=== PATIENT | male | born 1940 | race Caucasian/White ===

== ENCOUNTER → 2019-02-20 | Outpatient (CLI) | payer OTHER ==
[~2019-02-20] MED LIST: ALBU2.5V2 IH; ASPI-1197 PO; DILT120C47 PO; FE F1CAP33 PO; FINA5TAB41 PO; LANS30CA55 PO; LOSA25TA41 PO; MELO-108 PO; METF-444 PO; PRAV40TA3 PO; REGADENOSON 0.4 MG/5 ML PF SYG IVP SCH; TAMS0.4C32 PO
== END | disposition home or self-care (01) ==
LOC: RAH 08:56
PROVIDERS: ATTEND Family Medicine
DX: I25.10 Atherosclerotic heart disease of native coronary artery without angina pectoris (principal)
CPT/HCPCS: 78452; 93017; 96374; A9500 ×2; J2785

== ENCOUNTER → 2019-04-07 | Outpatient (CLI) | payer OTHER ==
[~2019-04-07] MED LIST changes: -REGADENOSON 0.4 MG/5 ML PF SYG IVP SCH
== END | disposition home or self-care (01) ==
LOC: SLP 20:25
PROVIDERS: ATTEND Family Medicine
DX: G47.30 Sleep apnea, unspecified (principal)
CPT/HCPCS: 95811

== ENCOUNTER → 2020-07-05 | Outpatient (CLI) | payer OTHER ==
[~2020-07-05] MED LIST changes: +REGADENOSON 0.4 MG/5 ML PF SYG IVP SCH
== END | disposition home or self-care (01) ==
LOC: SHCH 07:53
PROVIDERS: ATTEND Internal Medicine Cardiovascular Disease
DX: I21.29 ST elevation (STEMI) myocardial infarction involving other sites (principal); I21.19 ST elevation (STEMI) myocardial infarction involving other coronary artery of inferior wall; I25.10 Atherosclerotic heart disease of native coronary artery without angina pectoris
CPT/HCPCS: 78452; 93017; 96374; A9500 ×2; J2785

== ENCOUNTER → 2020-10-03 | Outpatient (CLI) | payer OTHER ==
[~2020-10-03] MED LIST changes: -REGADENOSON 0.4 MG/5 ML PF SYG IVP SCH
== END | disposition home or self-care (01) ==
LOC: RAH 10:59
PROVIDERS: ATTEND Family Medicine
DX: I65.23 Occlusion and stenosis of bilateral carotid arteries (principal)
CPT/HCPCS: 93880

== ENCOUNTER → 2020-10-24 | Outpatient (CLI) | payer OTHER | END | disposition home or self-care (01) | LOC: RAH 10:44 | PROVIDERS: ATTEND Family Medicine | DX: G31.89 Other specified degenerative diseases of nervous system (principal); I67.82 Cerebral ischemia | CPT/HCPCS: 70551 ==

== ENCOUNTER 2021-07-19 11:07 | Emergency (ER) | payer OTHER ==
[~2021-07-19] VITALS: Ht 177.8 cm; Wt 99.8 kg
[2021-07-19 11:08] VITALS: BP 142/59
== END 2021-07-19 11:51 | disposition left against medical advice (07) ==
LOC: EDH 11:07
DX: R06.02 Shortness of breath (principal); Z53.21 Procedure and treatment not carried out due to patient leaving prior to being seen by health care provider
CPT/HCPCS: 93005

== ENCOUNTER 2022-11-03 21:35 | Observation (INO) | payer OTHER ==
[~2022-11-03] VITALS: Ht 177.8 cm; Wt 110.7 kg
[2022-11-03] MEDS ORDERED: IPRATROPIUM/ALBUTEROL SULFATE 3 ML SOLUTION IH ONE ×2 (22:00→22:30)
[2022-11-03 22:15] LABS: APPEARANCE,URINE CLEAR (CLEAR); BILIRUBIN,URINE NEGATIVE (NEGATIVE); COLOR,URINE LIGHT-YELLOW (YELLOW); GLUCOSE, URINE (UA) NEGATIVE (NEGATIVE); KETONES,URINE NEGATIVE (NEGATIVE); LEUKOCYTE ESTERASE ,URINE NEGATIVE Leu/uL (NEGATIVE); NITRATE,URINE NEGATIVE (NEGATIVE); OCCULT BLOOD,URINE NEGATIVE (NEGATIVE); PH,URINE 5.5 (5.0-8.0); PROTEIN,URINE 20 mg/dL (NEGATIVE); UROBILINOGEN,URINE 0.2 mg/dL (0.2-1.0)
[2022-11-03 22:23] LABS: BASOPHILS % (AUTO) 0.9 % (0.0-5.0); EOSINOPHILS % (AUTO) 0.9 % (0.0-8.0); LYMPHOCYTES % (AUTO) 17.6 % (21.0-51.0); MEAN CORPUSCULAR HEMOGLOBIN 22.8 pg (27.0-33.0); MEAN CORPUSCULAR HGB CONC 30.9 g/dL (32.0-36.0); MEAN CORPUSCULAR VOLUME 73.8 fL (79-99); MONOCYTES % (AUTO) 8.8 % (3.0-13.0); NEUTROPHILS % (AUTO) 69.8 % (40.0-77.0); PLATELET COUNT (AUTO) 336 K/uL (130-400); RED BLOOD CELL COUNT(AUTO) 5.83 MIL/uL (4.50-6.20); RED CELL DISTRIBUTION WIDTH 19.3 % (11.0-15.5); WHITE BLOOD COUNT (AUTO) 11.6 K/uL (4.8-10.8)
[2022-11-03 22:26] LABS: INR 0.96 (0.85-1.15); PROTHROMBIN TIME 10.5 SEC (9.6-11.6)
[2022-11-03 22:27] LABS: PARTIAL THROMBOPLASTIN TIME 23.6 SEC (26.3-35.5)
[2022-11-03] MEDS ORDERED: AZITHROMYCIN 250 MG TABLET PO ONE (22:30)
[2022-11-03] MEDS ORDERED: SOLU-MEDROL 125MG VIAL IVP ONE (22:30)
[2022-11-03] MEDS ORDERED: CEFTRIAXONE 1G VIAL IVP ONE (22:30)
[2022-11-03] MEDS ORDERED: MAGNESIUM 2GM PREMIX 50ML 50 ML IV SCH (22:30)
[2022-11-03 22:31] LABS: B-TYPE NATRIURETIC PEPTIDE 28 pg/mL (0-100)
[2022-11-03 22:34] LABS: CREATININE 1.2 mg/dL (0.5-1.5); POTASSIUM 4.3 mmol/L (3.5-5.1)
[2022-11-03 22:38] LABS: ALBUMIN 3.8 g/dL (3.5-5.0); TOTAL PROTEIN, SERUM 7.2 g/dL (6.0-8.3)
[2022-11-04] MEDS ORDERED: 0.9%NACL 1000ML 2,500 ML IV ONE (00:30)
[2022-11-04 01:51] LABS: ABG HCO3 19.9 mmol/L (21.0-28.0); ABG OXYGEN SATURATION 92.1 % (95.0-99.0); ABG PCO2 36 mmHg (35-48)
[2022-11-04] MEDS ORDERED: ONDANSETRON 4MG INJ IVP PRN (02:30)
[2022-11-04] MEDS ORDERED: ACETAMINOPHEN 325 MG TAB PO PRN (02:30)
[2022-11-04] MEDS ORDERED: LACTULOSE 20 GM/30 ML UDCUP PO PRN (02:30)
[2022-11-04] MEDS ORDERED: ACETAMINOPHEN 650 MG SUPPOSITORY RC PRN (02:30)
[2022-11-04] MEDS ORDERED: CLONIDINE HCL 0.1 MG TABLET PO PRN (02:30)
[2022-11-04] MEDS ORDERED: TEMAZEPAM 15 MG CAPSULE PO PRN (02:30)
[2022-11-04] MEDS ORDERED: DOCUSATE SODIUM 100 MG CAP PO PRN (02:30)
[2022-11-04] MEDS ORDERED: LABETALOL 20MG SYG IV PRN (02:30)
[2022-11-04] MEDS ORDERED: HYDRALAZINE 20MG/ML VIAL IV PRN (02:30)
[2022-11-04] MEDS ORDERED: ALBUTEROL 0.083% 2.5 MG/3 ML INH IH PRN (02:30)
[2022-11-04] MEDS ORDERED: MAGNESIUM 2GM PREMIX 50ML 50 ML IV PRN (03:00)
[2022-11-04] MEDS ORDERED: GLUCAGON 1MG KIT 1 MG ML IM PRN (03:00)
[2022-11-04] MEDS ORDERED: DEXTROSE 50%-WATER 50 ML DISP.SYRIN IV PRN (03:00)
[2022-11-04] MEDS ORDERED: POTASSIUM CHLORIDE 10% ELIXIR 20 MEQ/15 ML UDCUP PO PRN (03:00)
[2022-11-04] MEDS ORDERED: KCL 20 MEQ ERTAB PO PRN (03:00)
[2022-11-04] MEDS ORDERED: POTASSIUM CHLORIDE 20MEQ/100ML 100 ML IV PRN (03:00)
[2022-11-04] MEDS ORDERED: LIDOCAINE HCL-MPF 1% 2ML VIAL IV PRN (03:00)
[2022-11-04] MEDS ORDERED: IPRATROPIUM/ALBUTEROL SULFATE 3 ML SOLUTION IH ONE (03:48)
[2022-11-04 04:00] VITALS: BP 134/68
[2022-11-04] MEDS: IPRATROPIUM/ALBUTEROL SULFATE 3 ML SOLUTION IH SCH ×4 (04:00→14:32)
[2022-11-04] MEDS ORDERED: FLUT1BLS3 PO (05:58)
[2022-11-04] MEDS ORDERED: DIAZ2TAB3 PO (05:58)
[2022-11-04] MEDS ORDERED: PEG4000S8 PO (05:58)
[2022-11-04] MEDS ORDERED: OLME-9 PO (05:58)
[2022-11-04] MEDS ORDERED: PREG25CA18 PO (05:58)
[2022-11-04] MEDS ORDERED: OMEP1CAP2 PO (05:58)
[2022-11-04] MEDS ORDERED: IPRATROPIUM/ALBUTEROL SULFATE 3 ML SOLUTION IH SCH (06:00)
[2022-11-04 06:49] LABS: BASOPHILS % (AUTO) 0.3 % (0.0-5.0); HEMATOCRIT 40.8 % (42-54); LYMPHOCYTES % (AUTO) 3.5 % (21.0-51.0); MEAN CORPUSCULAR HEMOGLOBIN 22.8 pg (27.0-33.0); MEAN CORPUSCULAR HGB CONC 29.9 g/dL (32.0-36.0); MEAN CORPUSCULAR VOLUME 76.3 fL (79-99); NEUTROPHILS % (AUTO) 93.4 % (40.0-77.0); PLATELET COUNT (AUTO) 278 K/uL (130-400); RED BLOOD CELL COUNT(AUTO) 5.35 MIL/uL (4.50-6.20); RED CELL DISTRIBUTION WIDTH 18.8 % (11.0-15.5); WHITE BLOOD COUNT (AUTO) 11.8 K/uL (4.8-10.8)
[2022-11-04] MEDS: INSULIN HUMULIN R 100 UNIT/ML 3ML SQ SCH ×4 (06:58→21:02)
[2022-11-04 07:15] LABS: CREATININE 1.4 mg/dL (0.5-1.5); MAGNESIUM 1.6 mg/dL (1.80-2.40); PHOSPHORUS 4.6 mg/dL (2.5-4.9); POTASSIUM 4.5 mmol/L (3.5-5.1)
[2022-11-04 08:00] VITALS: BP 147/69
[2022-11-04] MEDS ORDERED: SOLU-MEDROL 125MG VIAL IVP SCH (08:00)
[2022-11-04] MEDS: ENOXAPARIN SODIUM 40 MG/0.4 ML SYRINGE SQ SCH (09:04)
[2022-11-04] MEDS: ASPIRIN 81MG CHEW TAB PO SCH (09:04)
[2022-11-04] MEDS ORDERED: CEFTRIAXONE 1G VIAL IVP SCH (10:00)
[2022-11-04 10:55] VITALS: BP 131/70
[2022-11-04] MEDS ORDERED: LEVOFLOXACIN 500 MG/D5W 100 ML 100 ML IV SCH (12:30)
[2022-11-04] MEDS ORDERED: GUAIFENESIN-DM 200/20 MG 10 ML PO PRN (13:00)
[2022-11-04 16:00] VITALS: BP 143/73
[2022-11-04] MEDS ORDERED: DIAZEPAM 2 MG TAB PO PRN (16:30)
[2022-11-04] MEDS: ALBUTEROL 0.083% 2.5 MG/3 ML INH IH SCH ×2 (19:01→23:34)
[2022-11-04 19:55] VITALS: BP 162/80
[2022-11-04] MEDS: PREGABALIN 25 MG CAP PO SCH (20:56)
[2022-11-04] MEDS: OLMESARTAN HCTZ PO SCH (21:00)
[2022-11-04] MEDS ORDERED: IOHEXOL 350 MG/ML 100ML INFUS..BTL IV ONE (21:02)
[2022-11-04] MEDS ORDERED: AZITHROMYCIN 500MG+NS 250ML IV SCH (22:00)
[2022-11-04 23:49] VITALS: BP 140/65
[2022-11-04] MEDS: SOLU-MEDROL 40MG VIAL IVP SCH (23:52)
[2022-11-05 04:22] VITALS: BP 140/76
[2022-11-05] MEDS: ALBUTEROL 0.083% 2.5 MG/3 ML INH IH SCH ×2 (06:24→11:12)
[2022-11-05] MEDS: INSULIN HUMULIN R 100 UNIT/ML 3ML SQ SCH ×2 (06:50→11:33)
[2022-11-05] MEDS ORDERED: INSULIN GLARGINE 100 UNITS/ML 10 ML VIAL SQ SCH (07:30)
[2022-11-05 07:35] LABS: HEMATOCRIT 38.4 % (42-54); MEAN CORPUSCULAR HEMOGLOBIN 23.1 pg (27.0-33.0); MEAN CORPUSCULAR HGB CONC 30.5 g/dL (32.0-36.0); MEAN CORPUSCULAR VOLUME 75.7 fL (79-99); RED BLOOD CELL COUNT(AUTO) 5.07 MIL/uL (4.50-6.20); WHITE BLOOD COUNT (AUTO) 16.4 K/uL (4.8-10.8)
[2022-11-05 07:49] LABS: POTASSIUM 4.2 mmol/L (3.5-5.1)
[2022-11-05] MEDS: SOLU-MEDROL 40MG VIAL IVP SCH (08:38)
[2022-11-05] MEDS: ASPIRIN 81MG CHEW TAB PO SCH (08:38)
[2022-11-05] MEDS: PREGABALIN 25 MG CAP PO SCH (08:38)
[2022-11-05] MEDS: ENOXAPARIN SODIUM 40 MG/0.4 ML SYRINGE SQ SCH (08:39)
[2022-11-05 08:40] VITALS: BP 139/75
[2022-11-05] MEDS ORDERED: ZEGERID 20 MG PO SCH (09:00)
[2022-11-05] MEDS ORDERED: FINASTERIDE 5 MG TABLET PO SCH (09:00)
[2022-11-05] MEDS ORDERED: ASPIRIN 81MG CHEW TAB PO SCH (09:00)
[2022-11-05] MEDS: OLMESARTAN HCTZ PO SCH (09:00)
[2022-11-05] MEDS ORDERED: TAMSULOSIN HCL 0.4 MG CAP.ER.24H PO SCH (09:00)
[2022-11-05] MEDS ORDERED: Pravastatin Sodium 40 MG PO SCH (09:00)
[2022-11-05] MEDS ORDERED: DILTIAZEM 120MG SR CAP PO SCH (09:00)
[2022-11-05] MEDS ORDERED: LEVO-70 PO (11:18)
[2022-11-05] MEDS ORDERED: PRED20TA3 PO (11:18)
[2022-11-05] MEDS ORDERED: PRED10TA3 PO (11:18)
[2022-11-05] MEDS ORDERED: ALBU1.252 IH (11:18)
[2022-11-05] MEDS ORDERED: LEVOFLOXACIN 500 MG TABLET ONE (11:58)
[2022-11-05] MEDS ORDERED: LEVOFLOXACIN 500 MG TABLET PO SCH (12:00)
[2022-11-05 12:09] VITALS: BP 145/70
[2022-11-05] MEDS ORDERED: LEVOFLOXACIN 250 MG/D5W 50ML 50 ML IVPB SCH (12:30)
[2022-11-05] MEDS ORDERED: LEVOFLOXACIN 500 MG TABLET PO ONE (14:00)
== END 2022-11-05 13:54 | disposition home or self-care (01) ==
LOC: EDH 21:35 → EDHIP 11-04 01:32 → 2DH 11-04 03:05
PROVIDERS: ADMIT Internal Medicine; ATTEND Internal Medicine
DX: A41.9 Sepsis, unspecified organism (principal); Z20.822 Contact with and (suspected) exposure to COVID-19; J96.01 Acute respiratory failure with hypoxia; J44.1 Chronic obstructive pulmonary disease with (acute) exacerbation; J18.9 Pneumonia, unspecified organism; I10 Essential (primary) hypertension; E11.65 Type 2 diabetes mellitus with hyperglycemia; G47.33 Obstructive sleep apnea (adult) (pediatric); E87.20 Acidosis, unspecified; E78.00 Pure hypercholesterolemia, unspecified; F41.9 Anxiety disorder, unspecified; M54.30 Sciatica, unspecified side; R65.20 Severe sepsis without septic shock; Z87.891 Personal history of nicotine dependence; Z90.49 Acquired absence of other specified parts of digestive tract; Z95.5 Presence of coronary angioplasty implant and graft; Z79.899 Other long term (current) drug therapy; Z98.890 Other specified postprocedural states; Z95.1 Presence of aortocoronary bypass graft; Z79.84 Long term (current) use of oral hypoglycemic drugs; Z79.82 Long term (current) use of aspirin
CPT/HCPCS: 96375; 99285; 84484; 80053; 83880; 85025 ×2; 85610; 85730; 87040 ×2; 87071; 87205; 87804 ×2; 83605 ×2; 81003; 36415 ×3; 87635; 71045; 93005; 94640 ×10; 96376 ×2; 96372 ×2; 96361; 96365; 96366; 96367; 82435; 82947; 83735; 84100; 84132; 84295; 80048 ×2; 82803; 85378; 85018; 87077; 87186; 82948 ×6; 71270; 36600; 94664; 85027; 94760 ×2; C9803; J3475 ×2; J2930 ×3; J0696; G0378 ×33; J1956 ×2; J7030; J2920 ×2; J1650 ×2; J1815 ×5; Q9967

== ENCOUNTER → 2023-03-06 | Outpatient (CLI) | payer OTHER ==
[~2023-03-06] MED LIST changes: +ALBU1.252 IH; +DIAZ2TAB3 PO; -FE F1CAP33 PO; +FLUT1BLS3 PO; -LANS30CA55 PO; +LEVO-70 PO; -LOSA25TA41 PO; -MELO-108 PO; +OLME-9 PO; +OMEP1CAP2 PO; +PEG4000S8 PO; +PRED10TA3 PO; +PRED20TA3 PO; +PREG25CA18 PO
[2023-03-06 12:10] LABS: EOSINOPHILS % (AUTO) 2.9 % (0.0-8.0); HEMATOCRIT 41.1 % (42-54); LYMPHOCYTES % (AUTO) 17.3 % (21.0-51.0); MEAN CORPUSCULAR HEMOGLOBIN 25.6 pg (27.0-33.0); MEAN CORPUSCULAR HGB CONC 31.4 g/dL (32.0-36.0); MEAN CORPUSCULAR VOLUME 81.5 fL (79-99); MONOCYTES % (AUTO) 6.6 % (3.0-13.0); NEUTROPHILS % (AUTO) 71.6 % (40.0-77.0); PLATELET COUNT (AUTO) 262 K/uL (130-400); RED BLOOD CELL COUNT(AUTO) 5.04 MIL/uL (4.50-6.20); RED CELL DISTRIBUTION WIDTH 17.8 % (11.0-15.5); WHITE BLOOD COUNT (AUTO) 7.9 K/uL (4.8-10.8)
[2023-03-06 12:41] LABS: ALBUMIN 3.6 g/dL (3.5-5.0); CREATININE 0.9 mg/dL (0.5-1.5); POTASSIUM 3.7 mmol/L (3.5-5.1); TOTAL PROTEIN, SERUM 7.3 g/dL (6.0-8.3)
== END | disposition home or self-care (01) ==
LOC: LAB 09:59
PROVIDERS: ATTEND Internal Medicine Cardiovascular Disease
DX: I10 Essential (primary) hypertension (principal)
CPT/HCPCS: 36415; 80053; 83735; 85025

== ENCOUNTER → 2024-01-14 | Outpatient (CLI) | payer OTHER ==
[~2024-01-14] MED LIST changes: -PREG25CA18 PO; +PREG25CA19 PO
[2024-01-14 12:40] LABS: ALBUMIN 3.5 g/dL (3.5-5.0); BILIRUBIN,TOTAL 0.5 mg/dL (0.2-1.0); CREATININE 0.8 mg/dL (0.5-1.5); POTASSIUM 4.2 mmol/L (3.5-5.1); TOTAL PROTEIN, SERUM 6.9 g/dL (6.0-8.3)
== END | disposition home or self-care (01) ==
LOC: LAB 08:30
PROVIDERS: ATTEND Nurse Practitioner Acute Care
DX: E78.5 Hyperlipidemia, unspecified (principal)
CPT/HCPCS: 36415; 80053; 80061

== ENCOUNTER 2024-08-02 14:24 | Emergency (ER) | payer OTHER ==
[~2024-08-02] VITALS: Ht 177.8 cm; Wt 104.3 kg
[~2024-08-02 14:24] MED LIST changes: +OLME-30 PO; -OLME-9 PO
[2024-08-02 17:05] VITALS: BP 138/78; PULSE 64; RESP 18; TEMP 98.7; O2SAT 98
== END 2024-08-02 17:58 | disposition home or self-care (01) ==
LOC: EDH 14:24
DX: N23 Unspecified renal colic (principal); N20.0 Calculus of kidney; R31.9 Hematuria, unspecified; E11.9 Type 2 diabetes mellitus without complications; E78.00 Pure hypercholesterolemia, unspecified; I10 Essential (primary) hypertension; J44.9 Chronic obstructive pulmonary disease, unspecified; Z79.52 Long term (current) use of systemic steroids; Z79.82 Long term (current) use of aspirin; Z79.84 Long term (current) use of oral hypoglycemic drugs; Z79.899 Other long term (current) drug therapy; Z88.1 Allergy status to other antibiotic agents; Z90.49 Acquired absence of other specified parts of digestive tract; Z95.5 Presence of coronary angioplasty implant and graft; Z98.890 Other specified postprocedural states
CPT/HCPCS: 99282

== ENCOUNTER → 2024-08-11 | Outpatient (CLI) | payer OTHER | END | disposition home or self-care (01) | LOC: RAH 13:05 | PROVIDERS: ATTEND Family Medicine | DX: N20.0 Calculus of kidney (principal); N21.0 Calculus in bladder; N28.1 Cyst of kidney, acquired; N32.89 Other specified disorders of bladder; R31.9 Hematuria, unspecified; A15.9 Respiratory tuberculosis unspecified; I70.90 Unspecified atherosclerosis; M47.815 Spondylosis without myelopathy or radiculopathy, thoracolumbar region; J84.9 Interstitial pulmonary disease, unspecified; J84.10 Pulmonary fibrosis, unspecified; Z90.49 Acquired absence of other specified parts of digestive tract | CPT/HCPCS: 74176 ==

== ENCOUNTER → 2025-01-01 | Outpatient (CLI) | payer OTHER ==
[~2025-01-01] MED LIST changes: -DIAZ2TAB3 PO; -DILT120C47 PO; -LEVO-70 PO; -METF-444 PO; +METF-526 PO; -OMEP1CAP2 PO; -PEG4000S8 PO; -PRED10TA3 PO; -PRED20TA3 PO
[2025-01-01 15:25] LABS: ALBUMIN 3.4 g/dL (3.5-5.0); BILIRUBIN,TOTAL 0.3 mg/dL (0.2-1.0); CREATININE 0.9 mg/dL (0.5-1.3); POTASSIUM 4.1 mmol/L (3.5-5.1); TOTAL PROTEIN, SERUM 6.6 g/dL (6.0-8.3)
== END | disposition home or self-care (01) ==
LOC: LAB 13:38
PROVIDERS: ATTEND Internal Medicine Cardiovascular Disease
DX: I25.111 Atherosclerotic heart disease of native coronary artery with angina pectoris with documented spasm (principal); R00.2 Palpitations
CPT/HCPCS: 36415; 80053

== ENCOUNTER → 2025-01-06 | Outpatient (CLI) | payer OTHER ==
[~2025-01-06] MED LIST changes: +IOHEXOL-350 50ML VIAL IV ONE; +IOHEXOL-350 75 ML VIAL IV ONE; +metoPROLOL tartRATE 1 MG/ML 5ML VIAL IV ONE
--- NOTE | 2025-01-06 11:09 | HMCIMG ---
CT CARDIAC ANGIO W/CONT. CCTA REASON: Atherosclerotic heart disease of [place] coronary artery without angina pect COMPARISON: None TECHNIQUE: Images are obtained through the heart in the axial plane before and during bolus IV contrast infusion, 100 cc Omnipaque 350. 2-D and 3-D multiplanar reconstruction images were then performed. The injection had to be repeated once due to motion artifact on the first sequence, total contrast volume was 200 cc. FINDINGS: This dictation is for the noncardiac findings only. Cardiac and coronary artery findings are reported separately. Visualized portions of the lungs are clear. There is normal-appearing pulmonary interstitium. There is no hilar or mediastinal lymphadenopathy. Chest wall structures appear unremarkable. IMPRESSION: 1. Unremarkable noncardiac portions of CT cardiac angiography.
--- NOTE | 2025-01-10 14:00 | CARDIOLOGY ---
RAD REPORT: CORNARY CT ANGIO RADIOLOGY REPORT: CORONARY CT ANGIOGRAPHY DATE: Jan 10, 2025 QUALITY: Excellent CLINICAL HISTORY AND INDICATION: [CAD ] TECHNIQUE: After obtaining a preliminary turbinated bone grinder image, contrast imaging performed on an Aquillon [id number] scanner. A dedicated, limited window, coronary imaging protocol was used, with single breath-hold, retrospective ECG gating, and automated arrhythmia rejection. 100 cc of low osmolar contrast agent: Omnipaque 350 was delivered via a 18-gauge IV catheter in the right antecubital fossa, using a power injector and followed by 60 cc of normal saline bolus as a chaser. Collimated images were reformatted at 0.5 mm intervals, and sent to an offline independent workstation for interpretation, using 3D anatomic reconstructions: Curved multiplanar reconstructions, maximum intensity projections, and multiplanar imaging. 10 mg IV metoprolol was administered prior to scanning. 0.8 mg SL nitroglycerin was given. CORONARY ARTERY DESCRIPTIONS: The coronary arteries arise in normal position. Left main coronary artery: Normal caliber vessel that bifurcates into the LAD and LCx. No stenosis. Left anterior descending coronary artery: Normal caliber vessel and gives rise to diagonal and septal branches. No stenosis. Left circumflex coronary artery: Normal caliber, nondominant and gives rise to two OM branches. No stenosis. Right coronary artery: Large, dominant vessel giving rise to the PL and PDA branches. The proximal to mid RCA is calcified with 20-30% stenosis. There is a drug eluting stent in the mid to distal RCA that appears patent. Just proximal to the stent there is mixed plaque with 40-50% stenosis. CAD-RADs: 3/S, moderate stenosis. Thoracic Aorta: Normal diameter. Kim Chance MD Cardiovascular Disease [facility] KIM CHANCE MD Jan 10, 2025 14:00
== END | disposition home or self-care (01) ==
LOC: RAH 08:52
PROVIDERS: ATTEND Internal Medicine Cardiovascular Disease
DX: I25.10 Atherosclerotic heart disease of native coronary artery without angina pectoris (principal)
CPT/HCPCS: 75574; J3490; Q9967 ×2

== ENCOUNTER 2025-03-09 13:55 | Observation (INO) | payer OTHER ==
[~2025-03-09] VITALS: Ht 177.8 cm; Wt 99.8 kg
[~2025-03-09 13:55] MED LIST changes: +ALBU18HF7 IH; -ALBU2.5V2 IH; -ASPI-1197 PO; +ASPI-1443 PO; +HYDR-4068 PO; -IOHEXOL-350 50ML VIAL IV ONE; -IOHEXOL-350 75 ML VIAL IV ONE; +IPRA42SP EN; +METO-391 PO; +MULT-1289 PO; +POTA15TA11 PO; +TIRZ2.5P SQ; +VIT1CAPS47 PO; -metoPROLOL tartRATE 1 MG/ML 5ML VIAL IV ONE
--- NOTE | 2025-03-09 14:09 | EKG ---
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
--- NOTE | 2025-03-09 14:30 | ERN ---
General Chief Complaint: Chest Pain Stated Complaint: CP Time Seen by MD: 13:56 Source: patient History of Present Illness Initial Comments PATIENT IS A 84-YEAR-OLD MALE COMING IN WITH CHEST PRESSURE. PATIENT STATES HE WAS HOSPITALIZED FOR ATRIAL FIBRILLATION SECONDARY TO HYPOCALCEMIA WAS STARTED ON CALCIUM AND THIS MADE HIS ATRIAL FIBRILLATION WORSE. HE WAS HOSPITALIZED IN DISCHARGED AFTER A COUPLE OF DAYS OF BEING INPATIENT. HE STATES THAT SINCE THEN HE HAS BEEN HAVING CHEST PRESSURE CHEST DISCOMFORT. PATIENT DOES HAS A HISTORY OF ATRIAL FIBRILLATION. Allergies: Coded Allergies: metronidazole (Unverified Allergy, Unknown, 07/04/20) Home Meds Active Scripts Albuterol Sulfate (Albuterol Sulfate) 1.25 Mg/3 Ml Vial.neb, 1.25 MG IH Q6HPRN PRN for SHORTNESS OF BREATH for 30 Days, #90 INH Prov:RIN HOANG POLYSOMNOGRAPH TECH 11/05/22 Reported Medications Albuterol Sulfate (Ventolin Hfa) 90 Mcg Hfa.aer.ad, 2 PUFF IH DAILY 03/01/25 Mv-Min/Folic/K1/Lycopen/Lutein (Centrum Silver Men Tablet) 300 Mcg-60 Mcg-600 Mcg-300 Mcg Tablet, 1 EACH PO DAILY, TAB 02/28/25 Vit C/E/Zn/Coppr/Lutein/Zeaxan (Preservision Areds 2 Softgel) 250MG-90MG Capsule, 1 CAP PO BID for 30 Days, #60 CAP 0 Refills 02/28/25 Ipratropium [place] (Ipratropium [place]) 42 Mcg (0.06 %) [place], 2 SPRY EN BID PRN for congestion 02/28/25 Aspirin (Aspirin EC) 81 Mg Tablet.dr, 81 MG PO DAILY, TAB 02/28/25 Potassium Citrate (Potassium Citrate ER) 15 Meq (1620 Mg) Tablet.er, 1 TAB PO BID 02/28/25 Metoprolol Succinate (Metoprolol Succinate) 50 Mg Tab.er.24h, 1 TAB PO DAILY 02/28/25 Hydrocodone/Acetaminophen (Hydrocodon-Acetaminophn 10-325) 10 Mg-325 Mg Tablet, 1 TAB PO Q6HPRN PRN for MODERATE PAIN (4-6) 02/28/25 Tirzepatide (Mounjaro) 2.5 Mg/0.5 Ml Pen.injctr, 2.5 MG SQ QWEEK on saturdays02/28/25 Metformin HCl (Metformin HCl ER) 500 Mg Tab.er.24, 4 TAB PO DAILYDINNER for 30 Days, #30 TAB 0 Refills 11/02/24 Olmesartan/Hydrochlorothiazide (Olmesartan-Hctz 40-12.5 mg Tab) 40 Mg-12.5 Mg Tablet, 1 TAB PO DAILY for 30 Days, #30 TAB 0 Refills 11/02/24 Pregabalin (Pregabalin) 25 Mg Capsule, 1 CAP PO BID 11/04/22 Fluticasone/Umeclidin/Vilanter (Trelegy Ellipta 100-62.5-25) 100-62.5 Blst.w.dev, 1 PUFF PO DAILY 11/04/22 Tamsulosin HCl (Tamsulosin HCl) 0.4 Mg Cap.er.24h, 0.4 MG PO DAILY, CAPSULE.DR 11/22/16 Finasteride (Finasteride) 5 Mg Tablet, 5 MG PO HS, TAB 11/22/16 Pravastatin Sodium (Pravastatin Sodium) 40 Mg Tablet, 40 MG PO DAILY, TAB 11/22/16 Past Medical History Past Medical History: Arrythmia, CAD, COPD, Diabetes-Type II, High Cholesterol, Hypertension, OK Past Surgical History: Appendectomy, Cholecystectomy Surgical History Other: CARDIAC STENT, HERNIA, SINUSIS , ANKLE Family History Family History: HTN Social History Social History: Negative, Lives with family ROS Dictation CONSTITUTIONAL: NO CHILLS, NO FEVER, NO WEAKNESS, NO DIAPHORESIS, NO MALAISE. HEAD/FACE: NO SIGNS OF TRAUMA. EENT: NO EYE PAIN, NO BLURRED VISION, NO TEARING, NO DOUBLE VISION, NO EAR PAIN, NO EAR DISCHARGE, NO NOSE PAIN, NO NASAL CONGESTION, NO THROAT PAIN, NO THROAT SWELLING, NO MOUTH PAIN. RESPIRATORY: NO COUGH, NO ORTHOPNEA, NO SOB, NO STRIDOR, NO WHEEZING. CARDIOVASCULAR: CHEST PAIN, NO EDEMA, PALPITATIONS, NO SYNCOPE. GASTROINTESTINAL/ABDOMINAL: NO ABDOMINAL PAIN, NO CONSTIPATION, NO DIARRHEA, NO NAUSEA, NO VOMITING. GENITOURINARY: NO ABNORMAL DISCHARGE, NO DYSURIA, NO FREQUENT URINATION, NO HEMATURIA. NO COMPLAINTS OF PAIN IN THE GENITALS. MUSCULOSKELETAL: NO BACK PAIN, NO GOUT, NO JOINT PAIN, NO JOINT SWELLING, NO MUSCLE PAIN, NO MUSCLE STIFFNESS, NO NECK PAIN. INTEGUMENTARY: NO CHANGE IN COLOR, NO CHANGE IN HAIR/NAILS, NO DRYNESS, NO LESION, NO LUMPS, NO RASH. NEUROLOGICAL/PSYCH: NO ANXIETY, NOT DEPRESSED, NO EMOTIONAL PROBLEM, NO HEADACHE, NO NUMBNESS, NO PRE-EXISTING DEFICIT, NO HISTORY OF SEIZURES, NO TREMORS, NO WEAKNESS. HEMATOLOGIC/LYMPHATIC: NOT ANEMIC, NO HISTORY OF BLOOD CLOTS, NO APPARENT BLEEDING, NO BRUISING, GLANDS NOT SWOLLEN. ALL SYSTEMS NEGATIVE, EXCEPT NOTED. Physical Exam Physical Exam Dictation VITAL SIGNS: REVIEWED. GENERAL APPEARANCE: ALERT, ORIENTED X3, NO ACUTE DISTRESS, OBESE. HEAD AND FACE: NON-TRAUMATIC. EYES: PERRL, PINK CONJUNCTIVAS, EYELID NO TRAUMA, ANTERIOR CHAMBER CLEAR. EARS: PINNAS INTACT AND NO SIGNS OF TRAUMA OR ERYTHEMA. EAR CANALS CLEAR AND NO DISCHARGE. TMS NO ERYTHEMA. NOSE: NO DISCHARGE, NO BLEEDING. OROPHARYNX: MOUTH NORMAL, TEETH NO CARIES, TONGUE PINK. PHARYNX CLEAR, NO ERYTHEMA. TONSILS NO EXUDATES, NO ABSCESSES NOTED. MUCOUS MEMBRANE MOIST. NECK: SUPPLE, NON-TENDER, NO THYROMEGALY, NO MASSES, NO JVD, NO BRUITS. BREAST: DEFERRED. CHEST: TENDERNESS, NO CREPITUS, NO PARADOXICAL MOVEMENT, NO RETRACTIONS. LUNGS: CLEAR, WELL-VENTILATED, SYMMETRIC, NO RALES, NO WHEEZING, NO RHONCHI, NO STRIDOR, GOOD BREATH SOUNDS BILATERALLY. HEART: REGULAR RATE, REGULAR RHYTHM, NO MURMUR, NO GALLOPS. VASCULAR: NO PERIPHERAL EDEMA. ABDOMEN: SOFT, POSITIVE BOWEL SOUNDS, NONDISTENDED, NO GUARDING, NONTENDER, NO REBOUND, NO MASSES NO HEPATOMEGALY, NO SPLENOMEGALY, NO DICKINSON'S SIGN, NO HERNIAS. RECTAL: DEFERRED. GENITAL: DEFERRED. NEUROLOGICAL: NORMAL SPEECH, GROSS MOTOR FUNCTION INTACT, GROSS SENSORY FUNCTION INTACT. MUSCULOSKELETAL: NECK NONTENDER, FULL RANGE OF MOTION, BACK NONTENDER, FULL RANGE OF MOTION. EXTREMITIES: NONTENDER, FULL RANGE OF MOTION. SKIN: COLOR PINK, DRY, NO TURGOR, NO RASH, NO LACERATIONS, NO ABRASIONS, NO CONTUSIONS. LYMPHATICS: DEFERRED. Results Laboratory and Microbiology Lab and Micro Result Laboratory Tests Test 03/09/25 14:17 03/09/25 15:00 03/09/25 16:45 White Blood Count 9.3 K/uL (4.8-10.8) Red Blood Count 5.06 MIL/uL (4.50-6.20) Hemoglobin 13.6 g/dL (14.0-18.0) L Hematocrit 42.7 % (42-54) Mean Corpuscular Volume 84.4 fL (79-99) Mean Corpuscular Hemoglobin 26.9 pg (27.0-33.0) L Mean Corpuscular Hemoglobin Concent 31.9 g/dL (32.0-36.0) L Red Cell Distribution Width 16.6 % (11.0-15.5) H Platelet Count 303 K/uL (130-400) Mean Platelet Volume 10.7 fL (7.5-10.5) H Immature Granulocyte % (Auto) 1.0 % (0-1) Neutrophils (%) (Auto) 74.0 % (40.0-77.0) Lymphocytes (%) (Auto) 13.5 % (21.0-51.0) L Monocytes (%) (Auto) 6.9 % (3.0-13.0) Eosinophils (%) (Auto) 3.7 % (0.0-8.0) Basophils (%) (Auto) 0.9 % (0.0-5.0) Neutrophils # (Auto) 6.9 K/uL (1.8-7.7) Lymphocytes # (Auto) 1.3 K/uL (1.0-4.8) Monocytes # (Auto) 0.6 K/uL (0.1-1.0) Eosinophils # (Auto) 0.34 K/uL (0.00-0.70) Basophils # (Auto) 0.08 K/uL (0.00-0.20) Absolute Immature Granulocyte (auto 0.09 K/uL (0-1) Nucleated Red Blood Cells 0.0 % (0.0-0.19) Prothrombin Time 11.0 SEC (9.6-11.6) Prothromb Time International Ratio 1.04 (0.85-1.15) Activated Partial Thromboplast Time 27.6 SEC (26.3-35.5) Sodium Level 138 mmol/L (136-145) Potassium Level 4.1 mmol/L (3.5-5.1) Chloride Level 101 mmol/L (101-111) Carbon Dioxide Level 30 mmol/L (21-32) Blood Urea Nitrogen 18 mg/dL (7-18) Creatinine 0.9 mg/dL (0.5-1.3) Glomerular Filtration Rate Calc 84 mL/min (>90) Random Glucose 106 mg/dL (70-105) H Total Calcium 9.1 mg/dL (8.5-10.1) Magnesium Level 1.70 mg/dL (1.80-2.40) L Total Creatine Kinase 32 U/L (21-232) # Troponin I High Sensitivity 11 ng/L (4-75) 13 ng/L (4-75) B-Type Natriuretic Peptide 206 pg/mL (0-100) H Urine Color COLORLESS (YELLOW) Urine Appearance CLEAR (CLEAR) Urine pH 6.5 (5.0-8.0) Urine Specific [place] 1.008 (1.001-1.031) Urine Protein NEGATIVE mg/dL (NEGATIVE) Urine Glucose (UA) NEGATIVE mg/dL (NEGATIVE) Urine Ketones NEGATIVE mg/dL (NEGATIVE) Urine Occult Blood NEGATIVE (NEGATIVE) Urine Nitrate NEGATIVE (NEGATIVE) Urine Bilirubin NEGATIVE mg/dL (NEGATIVE) Urine Urobilinogen 0.2 mg/dL (0.2-1.0) Urine Leukocyte Esterase NEGATIVE Ra/uL EKG/XRAY/US/CT/MRI EKG Comment 03/09/2025 TIME 1:20 P.M. VENTRICULAR RATE [address] WAVE ELEVATION OR [place] [address] IMAGING REPORT Signed PATIENT: ABISAI MCGHEE MR#: [id number] : 1940 SEX: M AGE: 84 LOCATION: [facility] ORDER 06 STATUS: REG REPORT#: [id number] SERVICE 04 REASON: CP ORDERING PHYSICIAN: AI VILLAFUERTE MD PROCEDURE: CXR1VW - CHEST 1VW Exam Type: CHEST 1VW Clinical Information: CP Comparison: None Findings: Bilateral small pleural effusions. The lungs are clear of infiltrates. The heart is enlarged. Bony and soft tissue structures of the chest wall are unremarkable. IMPRESSION: Cardiomegaly. Clear lungs. Bilateral small pleural effusions. DICTATED BY: MATTHEW STARKS MD DATE: 03/09/251444 ELECTRONICALLY SIGNED BY: MATTHEW STARKS MD DATE: 03/09/251448 [facility] MDM: DIFFERENTIAL DIAGNOSIS: ATRIAL FIBRILLATION, SHORTNESS OF BREATH, RATIONALE: TESTS CONSIDERED AND ORDERED SECONDARY TO SHARED DECISION MAKING INCLUDE: PREVIOUS OUTSIDE RECORDS REVIEWED: OLD ER VISITS. RISK OF COMPLICATION AND/OR MORBIDITY OR MORTALITY OF PATIENT MANAGEMENT: NONE MEDICATIONS-PER MEDICATION RECONCILIATION NEED FOR HOSPITALIZATION: PATIENT DOES NOT MEET CRITERIA FOR HOSPITALIZATION. NEED FOR EMERGENCY MAJOR/MINOR SURGERY: NO THERE ARE NO SOCIAL CONCERNS WITH THIS PATIENT. PRESCRIPTION DRUG MANAGEMENT PRESCRIPTIONS WILL INCLUDE SYMPTOMATIC CARE PATIENT'S PRIOR EXTERNAL MEDICAL RECORDS FROM OTHER ER VISITS WERE REVIEWED BY ME INDICATED. PRIOR TESTING AND RESULTS FROM PREVIOUS VISITS WERE REVIEWED. PRIOR TESTS WERE TAKEN INTO ACCOUNT WITH MEDICAL DECISION MAKING AND RESOURCE U TILIZATION, INDEPENDENT HISTORIAN/HISTORIANS WERE USED TO OBTAIN COMPLETE MEDICAL HISTORY. I INDEPENDENTLY INTERPRETED THE TEST THAT WERE PERFORMED, RESULTS WERE REVIEWED BY ME AND CONSIDERED FINDINGS ON RADIOLOGY IF ORDERED. MEDICAL MANAGEMENT AND EXAMINATION INTERPRETATION DISCUSSIONS WERE HAD BY ME WITH OTHER QUALIFIED HEALTHCARE PROFESSIONALS INDICATED FOR THE PATIENT'S CA RE. HE WILL BE ADMITTED UNDER THE CARE OF COUNTS INCLUDE 234 BEDS AT THE [facility] FOR ONGOING MANAGEMENT. ED Course Orders Procedure Category Date Status Time Cbc With Differential LAB 03/09/25 Complete 14:05 Prothrombin Time With LAB 03/09/25 Complete INR 14:05 B-Type Natriuretic LAB 03/09/25 Complete Peptide 14:05 Chest 1vw RAD 03/09/25 Resulted 14:05 12 Lead Ekg Tracing- EKG 03/09/25 Complete Technical 14:05 Magnesium LAB 03/09/25 Complete 14:05 Creatine Kinase, Total LAB 03/09/25 Complete 14:05 Troponin I High LAB 03/09/25 Complete Sensitivity 14:05 Urinalysis Profile LAB 03/09/25 Complete 14:05 Partial LAB 03/09/25 Complete Thromboplastin Time 14:05 Basic Metabolic Panel LAB 03/09/25 Complete 14:05 Troponin I High LAB 03/09/25 Complete Sensitivity 15:20 Magnesium 2gm Premix PHA 03/09/25 In Process 50ml (Magnesium 2gm 17:00 Current Medications Medications (Trade) Dose Ordered Sig/Clive Route PRN Reason Start Time Stop Time Status Last Admin Dose Admin Magnesium Sulfate 50 ml @ 0 mls/hr PROTOCOL IV 4/22/25 17:00 04/08/25 16:59 03/09/25 16:57 Vital Signs Date Time Temp Pulse Resp B/P (MAP) Pulse Ox O2 Delivery O2 Flow Rate FiO2 03/09/25 15:35 98.1 114 24 98 Room Air* 0 21 03/09/25 13:56 98.1 100 18 151/90 96 DX & DISP Disposition: Inpatient Decision to Admit Time: 17:34 Departure Impression: Primary Impression: Irregular heartbeat Additional Impression: History of atrial fibrillation Condition: Stable Referrals: JOÃO ARRIAGA MD (PCP) AI VILLAFUERTE MD Mar 09, 2025 14:30
[2025-03-09 14:31] LABS: BASOPHILS # (AUTO) 0.08 K/uL (0.00-0.20); BASOPHILS % (AUTO) 0.9 % (0.0-5.0); EOSINOPHILS # (AUTO) 0.34 K/uL (0.00-0.70); EOSINOPHILS % (AUTO) 3.7 % (0.0-8.0); HEMATOCRIT 42.7 % (42-54); IMMATURE GRANULOCYTE ABSOLUTE 0.09 K/uL (0-1); LYMPHOCYTES # (AUTO) 1.3 K/uL (1.0-4.8); LYMPHOCYTES % (AUTO) 13.5 % (21.0-51.0); MEAN CORPUSCULAR HEMOGLOBIN 26.9 pg (27.0-33.0); MEAN CORPUSCULAR HGB CONC 31.9 g/dL (32.0-36.0); MEAN CORPUSCULAR VOLUME 84.4 fL (79-99); MONOCYTES # (AUTO) 0.6 K/uL (0.1-1.0); MONOCYTES % (AUTO) 6.9 % (3.0-13.0); NEUTROPHILS # (AUTO) 6.9 K/uL (1.8-7.7); PLATELET COUNT (AUTO) 303 K/uL (130-400); RED BLOOD CELL COUNT(AUTO) 5.06 MIL/uL (4.50-6.20); RED CELL DISTRIBUTION WIDTH 16.6 % (11.0-15.5); WHITE BLOOD COUNT (AUTO) 9.3 K/uL (4.8-10.8)
[2025-03-09 14:41] LABS: CREATININE 0.9 mg/dL (0.5-1.3); INR 1.04 (0.85-1.15); POTASSIUM 4.1 mmol/L (3.5-5.1)
[2025-03-09 14:43] LABS: PARTIAL THROMBOPLASTIN TIME 27.6 SEC (26.3-35.5)
[2025-03-09 14:45] LABS: MAGNESIUM 1.7 mg/dL (1.80-2.40)
--- NOTE | 2025-03-09 14:49 | HMCIMG ---
Exam Type: CHEST 1VW Clinical Information: CP Comparison: None Findings: Bilateral small pleural effusions. The lungs are clear of infiltrates. The heart is enlarged. Bony and soft tissue structures of the chest wall are unremarkable. IMPRESSION: Cardiomegaly. Clear lungs. Bilateral small pleural effusions.
[2025-03-09 14:55] LABS: B-TYPE NATRIURETIC PEPTIDE 206 pg/mL (0-100)
--- NOTE | 2025-03-09 15:00 | NUR ---
ASSUMED PATIENTS CARE. NO SIGNS OF RESPIRATORY DISTRESS. ALERT AND ORIENTED. ABLE TO VOICE NEEDS AND ANSWER QUESTIONS. VITAL SIGNS: BLOOD PRESSURE: 135/87 MMHG PULSE 114 P/MIN O2 SATURATION 98% RESPIRATION 24
--- NOTE | 2025-03-09 15:07 | NUR ---
PLACED 20G ON RIGHT ANTECUBITAL. FLUSED AND SALINE LOCK. OBTAINED BLOOD SAMPLES.
--- NOTE | 2025-03-09 16:46 | NUR ---
OBTAINED URINE SAMPLE, SENT IT TO LAB.
[2025-03-09] MEDS: MAGNESIUM 2GM PREMIX 50ML 50 ML IV SCH (16:57)
[2025-03-09 16:58] LABS: ADD UA MICROSCOPIC NO; APPEARANCE,URINE CLEAR (CLEAR); BILIRUBIN,URINE NEGATIVE (NEGATIVE); COLOR,URINE COLORLESS (YELLOW); GLUCOSE, URINE (UA) NEGATIVE (NEGATIVE); KETONES,URINE NEGATIVE (NEGATIVE); LEUKOCYTE ESTERASE ,URINE NEGATIVE Leu/uL (NEGATIVE); NITRATE,URINE NEGATIVE (NEGATIVE); OCCULT BLOOD,URINE NEGATIVE (NEGATIVE); PH,URINE 6.5 (5.0-8.0); PROTEIN,URINE NEGATIVE (NEGATIVE); UROBILINOGEN,URINE 0.2 mg/dL (0.2-1.0)
--- NOTE | 2025-03-09 19:52 | HP ---
[facility] HISTORY & PHYSICAL Date Patient Seen: Mar 09, 2025 Time of Visit: 19:43 Supervising Physician: Dr El Jo Primary Care Physician: Dr Page Outpatient Specialists: Dr Loera Inpatient Consults: [ ] PROBLEM LIST: Acute hypoxic respiratory failure, POA COPD, POA Chest pain, POA Atrial fibrillation, POA Hypertension, POA Hyperlipidemia, POA DM type 2, POA Hypomagnesemia, POA History of CAD s/p cardiac stent History of kidney stones status post cystoscopy PLAN: Admit to medical-surgical floor with telemetry VS per unit protocol Continue cardiac monitoring Keep potassium level above four, magnesium level above two Continue O2 therapy DuoNeb q.6 as needed for shortness of breaths Keep systolic blood pressure less than 160 P.r.n. hydralazine and labetalol Keep serum glucose less than 150 ISS and fingerstick per unit protocol Cardiology consult in a.m. Stat EKG and troponin level of with chest pain Up ad karen Heart healthy diet Bilateral SCDs CBC, CMP, magnesium level daily HPI: 84-year-old male with past medical history of SD, CAD as s/p cardiac stent, kidney stones, hypertension, DM type 2, COPD, hyperlipidemia, AFib who presented to ED with complaint of chest pain and worsening shortness of breath and found to have AFib with RVR and hypomagnesemia. Apparently patient was recently discharged from this hospital after undergoing treatment for renal stone and since then he has been having issues with on and off chest pain and irregular heartbeat. Apparently patient says that he has a regular heart rate for the past 20 years and he sees Dr. Loera for management. Patient was initially placed on metoprolol but couple of weeks ago his PCP decided to increase the dose. His symptoms got worse today prompting ER visit. In ER patient was found to have heart rate more than 160s and on AFib RVR patient was also found to be mildly hypoxic improved with O2 therapy. Initial CBC in ED did not reveal any acute infection anemia, his chemistry is unrevealing for any kidney dysfunction however his magnesium level was at 1.7. Chest x-ray was also done and showed no acute infiltrates. At present patient is currently hemodynamically stable, nasal cannula with appropriate oxygen saturation. Denies any headache, chest pain, shortness of breath, abdominal pain, fever, cough, or flu-like symptoms. Patient is an ex-smoker, drinks alcohol occasionally, and denies any illicit drug use. Patient is also vaccinated against COVID virus and his flu shot is up-to-date. PAST MEDICAL HX: see above PAST SURGICAL HX: Noncontributory SOCIAL HISTORY: See HPI Coded Allergies: metronidazole (Unverified Allergy, Unknown, 07/04/20) REVIEW OF SYSTEMS: 12 point ROS reviewed with patient. Pertinent positives mentioned above. Otherwise negative. PHYSICAL EXAM: GENERAL: alert, weak, awake oriented x 3 HEENT: EOMI, Sclera non icteric, moist mucosa NECK: Supple, no JVD, trachea midline LUNGS: Clear breath sounds bilaterally. No wheezes HEART: Regular rate and rhythm. Normal S1 and S2, without murmurs ABD: Abdomen soft, nontender. Bowel sounds present EXT: No clubbing cyanosis or edema NEURO: Alert and oriented to person, follows commands Vital Signs (last 8hr) Date Time Temp Pulse Resp B/P (MAP) Pulse Ox O2 Delivery O2 Flow Rate FiO2 03/09/25 15:35 98.1 114 24 98 Room Air* 0 21 03/09/25 13:56 98.1 100 18 151/90 96 LABS: Hematology Labs: Test 03/09/25 14:17 Range/Units White Blood Count 9.3 4.8-10.8 K/uL Red Blood Count 5.06 4.50-6.20 MIL/uL Hemoglobin 13.6 L 14.0-18.0 g/dL Hematocrit 42.7 42-54 % Mean Corpuscular Volume 84.4 79-99 fL Mean Corpuscular Hemoglobin 26.9 L 27.0-33.0 pg Mean Corpuscular Hemoglobin Concent 31.9 L 32.0-36.0 g/dL Red Cell Distribution Width 16.6 H 11.0-15.5 % Platelet Count 303 130-400 K/uL Mean Platelet Volume 10.7 H 7.5-10.5 fL Immature Granulocyte % (Auto) 1.0 0-1 % Neutrophils (%) (Auto) 74.0 40.0-77.0 % Lymphocytes (%) (Auto) 13.5 L 21.0-51.0 % Monocytes (%) (Auto) 6.9 3.0-13.0 % Eosinophils (%) (Auto) 3.7 0.0-8.0 % Basophils (%) (Auto) 0.9 0.0-5.0 % Neutrophils # (Auto) 6.9 1.8-7.7 K/uL Lymphocytes # (Auto) 1.3 1.0-4.8 K/uL Monocytes # (Auto) 0.6 0.1-1.0 K/uL Eosinophils # (Auto) 0.34 0.00-0.70 K/uL Basophils # (Auto) 0.08 0.00-0.20 K/uL Absolute Immature Granulocyte (auto 0.09 0-1 K/uL Nucleated Red Blood Cells 0.0 0.0-0.19 % Chemistry Labs: Test 03/09/25 15:00 03/09/25 14:17 Range/Units Troponin I High Sensitivity 13 4-75 ng/L Sodium Level 138 136-145 mmol/L Potassium Level 4.1 3.5-5.1 mmol/L Chloride Level 101 101-111 mmol/L Carbon Dioxide Level 30 21-32 mmol/L Blood Urea Nitrogen 18 7-18 mg/dL Creatinine 0.9 0.5-1.3 mg/dL Glomerular Filtration Rate Calc 84 >90 mL/min Random Glucose 106 H 70-105 mg/dL Total Calcium 9.1 8.5-10.1 mg/dL Magnesium Level 1.70 L 1.80-2.40 mg/dL Total Creatine Kinase 32 # 21-232 U/L B-Type Natriuretic Peptide 206 H 0-100 pg/mL Coagulation Labs: Test 03/09/25 14:17 Range/Units Prothrombin Time 11.0 9.6-11.6 SEC Prothromb Time International Ratio 1.04 0.85-1.15 Activated Partial Thromboplast Time 27.6 26.3-35.5 SEC DIAGNOSTICS / RADIOLOGY RESULTS: Exam Type: CHEST 1VW Clinical Information: CP Comparison: None Findings: Bilateral small pleural effusions. The lungs are clear of infiltrates. The heart is enlarged. Bony and soft tissue structures of the chest wall are unremarkable. IMPRESSION: Cardiomegaly. Clear lungs. Bilateral small pleural effusions. PLAN NEURO: Minimize central acting medications as possible. Maintain fall precautions, adequate lighting during the day PULMONARY: Supplemental 02 as needed. Maintain aspiration precautions at all times CARDIOVASCULAR: Follow hemodynamics. Vital signs per facility protocol GI & NUTRITION: Continue with nutritional support. Continue stool softeners and laxatives as needed. KIDNEYS & ELECTROLYTES: Strict monitoring of intake, output and overall fluid balance. Avoid nephrotoxic medications to the extent possible. Medications to be dosed according to renal function. Monitor electrolytes and replace as needed ENDOCRINE: Maintain blood glucose between 100-180 at all times. Hypoglycemia protocol in place INFECTIOUS DISEASE: Trend temperature, WBC and procalcitonin level Follow cultures, deescalate antibiotics as soon as possible. Panculture if new onset fever ONCOLOGY/HEMATOLOGY/COAGULATION: Monitor for s/s of bleeding Monitor hemoglobin, coagulation studies as needed SKIN: Pressure ulcer prevention per facility protocol Specialty mattress ORTHO/REHAB: Continue PT/OT Prophylaxis: Continue GI and DVT prophylaxis Code Status: Full Resuscitation Disposition: TBD Other: Total patient care time exceeds 35 minutes excluding all procedures. Supervising physician: MARTA Fitzgerald APRN Mar 09, 2025 19:52
[2025-03-09] MEDS ORDERED: LAbetaLOL 20MG SYG IV PRN (20:00)
[2025-03-09] MEDS ORDERED: hydrALAZine 20MG/ML VIAL IV PRN (20:00)
[2025-03-09] MEDS ORDERED: acetaMINOPHEN 325 MG TAB PO PRN (20:00)
[2025-03-09] MEDS ORDERED: HYDROcodone/APAP 5/325 1 TAB TABLET PO PRN (20:00)
[2025-03-09] MEDS ORDERED: ondanSETRON 4MG INJ IVP PRN (20:00)
[2025-03-09] MEDS ORDERED: acetaMINOPHEN 650 MG SUPPOSITORY RC PRN (20:00)
[2025-03-09] MEDS ORDERED: OLME40TA18 PO (20:58)
[2025-03-09] MEDS ORDERED: METF-446 PO (20:58)
[2025-03-09] MEDS: INSULIN humuLIN R 100 UNIT/ML 3ML SQ SCH (21:00)
[2025-03-09] MEDS: FAMOTIDINE 20MG TAB PO SCH (22:28)
[2025-03-09 23:32] VITALS: PULSE 61; RESP 20; O2SAT 97
[2025-03-09] MEDS: IpraTROPium 0.5 MG/2.5 ML INH IH SCH (23:32)
[2025-03-10 06:30] VITALS: RESP 20; O2SAT 97
[2025-03-10 06:32] VITALS: PULSE 88; RESP 20
[2025-03-10 08:15] LABS: BASOPHILS % (AUTO) 1.1 % (0.0-5.0); EOSINOPHILS # (AUTO) 0.46 K/uL (0.00-0.70); EOSINOPHILS % (AUTO) 5.2 % (0.0-8.0); HEMATOCRIT 40.4 % (42-54); IMMATURE GRANULOCYTE ABSOLUTE 0.13 K/uL (0-1); LYMPHOCYTES # (AUTO) 1.5 K/uL (1.0-4.8); LYMPHOCYTES % (AUTO) 16.6 % (21.0-51.0); MEAN CORPUSCULAR HEMOGLOBIN 26.9 pg (27.0-33.0); MEAN CORPUSCULAR HGB CONC 31.9 g/dL (32.0-36.0); MEAN CORPUSCULAR VOLUME 84.2 fL (79-99); MONOCYTES # (AUTO) 0.8 K/uL (0.1-1.0); MONOCYTES % (AUTO) 8.6 % (3.0-13.0); NEUTROPHILS # (AUTO) 5.9 K/uL (1.8-7.7); PLATELET COUNT (AUTO) 270 K/uL (130-400); RED CELL DISTRIBUTION WIDTH 16.9 % (11.0-15.5); WHITE BLOOD COUNT (AUTO) 8.8 K/uL (4.8-10.8)
[2025-03-10 08:31] LABS: CREATININE 0.9 mg/dL (0.5-1.3); PHOSPHORUS 3.4 mg/dL (2.5-4.9); POTASSIUM 3.8 mmol/L (3.5-5.1)
[2025-03-10] MEDS: tamSULOsin HCL 0.4 MG CAP.ER.24H PO SCH (09:10)
[2025-03-10] MEDS: ASPIRIN 81 MG EC TAB PO SCH (09:10)
[2025-03-10] MEDS: ASCORBIC ACID 500 MG TAB PO SCH (09:11)
[2025-03-10] MEDS: pregABALin 25 MG CAP PO SCH (09:11)
[2025-03-10] MEDS: LoSARTan 100 MG TABLET PO SCH (09:11)
[2025-03-10] MEDS: metOPROLol sucCINATE 50 MG TAB.SR.24H PO SCH (09:12)
[2025-03-10] MEDS: ENOXAPARIN SODIUM 40 MG/0.4 ML SYRINGE SQ SCH (09:14)
--- NOTE | 2025-03-10 10:29 | NUR ---
HOME MEDS CONTINUED BY SAM ESTRADA NP
--- NOTE | 2025-03-10 10:55 | NUR ---
DCP: HOME Pt was recently discharged on 03/02 for "same issues" reports pt's Raina [phone]. Per , "he has passed 47 stones with the 1640mg of Potassium Citrate he was prescribed by Dr Islas, but this has cause issues with chest pain and irregular heart beat, so we had to come back in". Per , nothing has changed since last admission, she assists pt when needed, but he is able to do self care, and ADLS, pt uses a cane as needed. no HH or HD services. PCP is Rao Page and uses [facility] [address] for rx. Per , pt to [place]. Addendum: 03/10/25 at 1103 by ANTONIO ARAGON SS Amended: Links added.
[2025-03-10 11:26] VITALS: PULSE 66; RESP 20
[2025-03-10 12:00] VITALS: BP 157/82; PULSE 64; RESP 22; TEMP 97.8; O2SAT 97
[2025-03-10] MEDS ORDERED: MAGN100T6 PO (14:29)
[2025-03-10] MEDS ORDERED: finaSTERide 5 MG TABLET PO SCH (21:00)
[2025-03-10] MEDS ORDERED: atorVAStatin 10 MG TABLET PO SCH (21:00)
--- NOTE | 2025-03-11 00:56 | DS ---
[facility] DISCHARGE SUMMARY Date Patient Seen: Mar 11, 2025 Time of Visit: 00:46 Supervising Physician: Sarah Guthrie MD Primary Care Physician: Dr Page Outpatient Specialists: Dr Loera Inpatient Consults: [ ] PROBLEM LIST: Acute hypoxic respiratory failure, POA COPD, POA Chest pain, POA Paroxymal Atrial fibrillation, POA CHADS-VASc score of 4, HAS Bled score 5 (Pt refusing AC) Hypertension, POA Hyperlipidemia, POA DM type 2, POA Hypomagnesemia, POA History of CAD s/p cardiac stent History of kidney stones status post cystoscopy prior hx of hemorrhagic GI bleed from diverticula HOSPITAL COURSE: HPI 84-year-old male with past medical history of IA, CAD as s/p cardiac stent, kidney stones, hypertension, DM type 2, COPD, hyperlipidemia, AFib who presented to ED with complaint of chest pain and worsening shortness of breath and found to have AFib with RVR and hypomagnesemia. Apparently patient was recently discharged from this hospital after undergoing treatment for renal stone and since then he has been having issues with on and off chest pain and irregular heartbeat. Apparently patient says that he has a regular heart rate for the past 20 years [address] he sees Dr. Loera for management. Patient was initially placed on metoprolol but couple of weeks ago his PCP decided to increase the dose. His symptoms got worse today prompting ER visit. In ER patient was found to have heart rate more than 160s and on AFib RVR patient was also found to be mildly hypoxic improved with O2 therapy. Initial CBC in ED did not reveal any acute infection anemia, his chemistry is unrevealing for any kidney dysfunction however his magnesium level was at 1.7. Chest x-ray was also done and showed no acute infiltrates. At present patient is currently hemodynamically stable, nasal cannula with appropriate oxygen saturation. Denies any headache, chest pain, shortness of breath, abdominal pain, fever, cough, or flu-like symptoms. Patient is an ex-smoker, drinks alcohol occasionally, and denies any illicit drug use. Patient is also vaccinated against COVID virus and his flu shot is up-to-date. The patient was seen and examined in room 14 in ED awaiting for a bed. Currentlydy converted to sinus rhythm in the 70s on bedside monitor. He is hemodynamically stable blood pressure 137/78 heart rate in the 70s saturating 96% on room air and afebrile. Home medications has been resumed and he as tolerated well. Magnesium was corrected and this morning magnesium is 2.0. Chemistry unremarkable. CBC similar to yesterday with a H&H of 12.9/40.4 plat elet count 270 K neutrophils are normal. Chest x-ray with cardiomegaly but clear lungs bilateral small pleural effusions. Patient reports he has an appointment with glassware maker Dr. Loera on 03/17/25. I have discussed patient's risk for stroke given his arrhythmias with a high CHADS-VASc score of 4 requiring anticoagulation and patient reports previous hemorrhagic GI bleed therefore he also has a high HAS-BLED score of 5 High risk for major bleeding and he has refused anticoagulation. Has opted out of AC and verbalized undertsanding of high risk for stroke educated patient on signs and symptoms of the stroke and importance to call an ambulance 86 beats any of those patient and verbalized understanding. CHRONIC PROBLEMS: continue previous management per PCP unless otherwise indicated THERAPIST OCCUPATIONAL FINDINGS/RECOMMENDATIONS: Patient to follow up with glassware maker as he has a an appointment for 03/17/25. Follow up with primary care doctor in 1-3 days. PROCEDURES: as mentioned above Pt hemodynamically stable and afebrile at time of discharge. PCP notified of patients admission, hospital course and discharge. New Medications: Magnesium Citrate (Magnesium Citrate) 100 Mg Tablet 1 TAB PO HS for 30 Days, #30 TAB 0 Refills Continued Medications: Albuterol Sulfate (Ventolin Hfa) 90 Mcg Hfa.aer.ad 2 PUFF IH DAILY Aspirin (Aspirin EC) 81 Mg Tablet. 81 MG PO DAILY, TAB Finasteride (Finasteride) 5 Mg Tablet 5 MG PO HS, TAB Ipratropium [place] (Ipratropium [place]) 42 Mcg (0.06 %) [place] 2 SPRY EN BID PRN for congestion Metformin HCl (Metformin HCl) 1,000 Mg Tablet 1 TAB PO HS for 30 Days, #60 TAB 0 Refills Metoprolol Succinate (Metoprolol Succinate) 50 Mg Tab.er.24h 1 TAB PO BID Mv-Min/Folic/K1/Lycopen/Lutein (Centrum Silver Men Tablet) 300 Mcg-60 Mcg-600 Mcg-300 Mcg Tablet 1 EACH PO DAILY, TAB Olmesartan Medoxomil (Olmesartan Medoxomil) 40 Mg Tablet 0.5 TAB PO DAILY for 30 Days, #30 TAB 0 Refills Pravastatin Sodium (Pravastatin Sodium) 40 Mg Tablet 40 MG PO DAILY, TAB Pregabalin (Pregabalin) 25 Mg Capsule 1 CAP PO BID Tamsulosin HCl (Tamsulosin HCl) 0.4 Mg Cap.er.24h 0.4 MG PO DAILY, CAPSULE. Tirzepatide (Mounjaro) 2.5 Mg/0.5 Ml Pen.injctr 2.5 MG SQ QWEEK SUNDAYS Vit C/E/Zn/Coppr/Lutein/Zeaxan (Preservision Areds 2 Softgel) 250MG-90MG Capsule 1 CAP PO BID for 30 Days, #60 CAP 0 Refills Discontinued Medications: Albuterol Sulfate (Albuterol Sulfate) 1.25 Mg/3 Ml Vial.neb 1.25 MG IH Q6HPRN PRN for SHORTNESS OF BREATH for 30 Days, #90 INH PHYSICAL EXAM: GENERAL: alert, weak, awake oriented x 3 HEENT: EOMI, Sclera non icteric, moist mucosa NECK: Supple, no JVD, trachea midline LUNGS: Clear breath sounds bilaterally. No wheezes HEART: Regular rate and rhythm. Normal S1 and S2, without murmurs ABD: Abdomen soft, nontender. Bowel sounds present EXT: No clubbing cyanosis or edema NEURO: Alert and oriented to person, follows commands FOLLOW-UP: Follow-up with PCP in 2-3 days Follow up with Dr. Loera on 03/17/25 RECOMMENDATIONS: See Discharge Instructions This case was seen and discussed with my supervising physician. More than 30 minutes spent on discharge process, including evaluation of the patient, discussion with nursing staff, medication reconciliation and follow-up appointments SAM ESTRADA Mar 11, 2025 00:56
== END 2025-03-10 15:10 | disposition home or self-care (01) ==
LOC: EDH 13:55 → EDHIP 19:42 → INTOOBSV 19:42
PROVIDERS: ADMIT Internal Medicine; ATTEND Internal Medicine
DX: J96.01 Acute respiratory failure with hypoxia (principal); I48.0 Paroxysmal atrial fibrillation; I11.9 Hypertensive heart disease without heart failure; J44.9 Chronic obstructive pulmonary disease, unspecified; E78.5 Hyperlipidemia, unspecified; E11.9 Type 2 diabetes mellitus without complications; E83.42 Hypomagnesemia; I25.10 Atherosclerotic heart disease of native coronary artery without angina pectoris; I25.2 Old myocardial infarction; N20.0 Calculus of kidney; Z87.891 Personal history of nicotine dependence; Z90.49 Acquired absence of other specified parts of digestive tract; Z95.5 Presence of coronary angioplasty implant and graft; Z79.84 Long term (current) use of oral hypoglycemic drugs; Z87.442 Personal history of urinary calculi
CPT/HCPCS: 99285; 96365; 96366; 71045; 82550; 83735 ×2; 84484 ×2; 80048 ×2; 83880; 85025 ×2; 85610; 85730; 82948 ×3; 81003; 36415 ×2; 93005; 96372; 84100; 94640; J3475; G0378; J1650; 94664; 96360; 96361

== ENCOUNTER 2025-03-21 17:39 | Observation (INO) | payer OTHER ==
[~2025-03-21] VITALS: Ht 177.8 cm; Wt 104.1 kg
[~2025-03-21 17:39] MED LIST changes: -ALBU1.252 IH; -FLUT1BLS3 PO; -HYDR-4068 PO; +MAGN100T6 PO; +METF-446 PO; -METF-526 PO; -OLME-30 PO; +OLME40TA18 PO; -POTA15TA11 PO
--- NOTE | 2025-03-21 17:46 | ERN ---
ED Note History of Present Illness Stated Complaint: CHEST PAIN Chief Complaint: Chest Pain Time Seen by MD: 17:40 Time Seen by Midlevel: 17:44 Dictation: PATIENT IS AN 84-YEAR-OLD MALE COMING IN TODAY WITH HIS WITH COMPLAINTS OF HAVING SUBSTERNAL CHEST PAIN THAT DOES NOT RADIATE, ONSET THIS MORNING AT 09:00 HOURS WHILE HE WAS AT REST. HE STATES HE HAD JUST GOTTEN OUT OF BED WHEN HE FELT THE PAIN/PRESSURE. HE DENIES ANY ARM PAIN JAW PAIN BACK PAIN NO SOB. 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 MEDICATION AT THIS TIME. HE STATES HE HAS HAD A PRIOR CARDIAC STENT. CURRENTLY STATES HE HAS BEEN OUT OF PAIN FOR A COUPLE OF HOURS BUT WAS CONCERNED THAT IN WANTED TO BE CHECKED OUT. Allergies: Coded Allergies: metronidazole (Unverified Allergy, Unknown, 07/04/20) Home Meds Active Scripts Magnesium Citrate (Magnesium Citrate) 100 Mg Tablet, 1 TAB PO HS for 30 Days, #30 TAB 0 Refills Prov:SAM ESTRADA 03/10/25 Reported Medications Tirzepatide (Mounjaro) 5 Mg/0.5 Ml Pen.injctr, 5 MG SQ QWEEK 03/21/25 Levalbuterol Tartrate (Levalbuterol Tartrate Hfa) 45 Mcg/Actuation Hfa.aer.ad, 2 PUFF IH Q4H for 30 Days, #15 GM 0 Refills 03/21/25 Fluticasone/Umeclidin/Vilanter (Trelegy Ellipta 100-62.5-25) 100-62.5 Blst.w.dev, 1 PUFF IH DAILY for 30 Days, #1 EACH 0 Refills 03/21/25 Olmesartan/Hydrochlorothiazide (Olmesartan-Hctz 40-12.5 mg Tab) 40 Mg-12.5 Mg Tablet, 0.5 TAB PO DAILY for 30 Days, #30 TAB 0 Refills 03/21/25 Metformin HCl (Metformin HCl) 1,000 Mg Tablet, 1 TAB PO HS for 30 Days, #60 TAB 0 Refills 03/09/25 Olmesartan Medoxomil (Olmesartan Medoxomil) 40 Mg Tablet, 0.5 TAB PO DAILY for 30 Days, #30 TAB 0 Refills 03/09/25 Albuterol Sulfate (Ventolin Hfa) 90 Mcg Hfa.aer.ad, 2 PUFF IH DAILY 03/01/25 Mv-Min/Folic/K1/Lycopen/Lutein (Centrum Silver Men Tablet) 300 Mcg-60 Mcg-600 Mcg-300 Mcg Tablet, 1 EACH PO DAILY, TAB 02/28/25 Vit C/E/Zn/Coppr/Lutein/Zeaxan (Preservision Areds 2 Softgel) 250MG-90MG Cap gayle, 1 CAP PO BID for 30 Days, #60 CAP 0 Refills 02/28/25 Ipratropium [place] (Ipratropium [place]) 42 Mcg (0.06 %) [place], 2 SPRY EN BID PRN for congestion 02/28/25 Aspirin (Aspirin EC) 81 Mg Tablet.dr, 81 MG PO DAILY, TAB 02/28/25 Metoprolol Succinate (Metoprolol Succinate) 50 Mg Tab.er.24h, 1 TAB PO BID 02/28/25 Tirzepatide (Mounjaro) 2.5 Mg/0.5 Ml Pen.injctr, 2.5 MG SQ QWEEK Sundays02/28/25 Pregabalin (Pregabalin) 25 Mg Capsule, 1 CAP PO BID 11/04/22 Tamsulosin HCl (Tamsulosin HCl) 0.4 Mg Cap.er.24h, 0.4 MG PO DAILY, CAPSULE.DR 11/22/16 Finasteride (Finasteride) 5 Mg Tablet, 5 MG PO HS, TAB 11/22/16 Pravastatin Sodium (Pravastatin Sodium) 40 Mg Tablet, 40 MG PO DAILY, TAB 11/22/16 Past Medical History Past Medical History: Arrythmia, CAD, COPD, Diabetes-Type II, High Cholesterol, Hypertension, [place] Surgical History: Appendectomy, Cholecystectomy Surgical History Other: CARDIAC STENT, HERNIA, SINUSIS , ANKLE Family History: HTN Social History: Negative, Lives with family RN Note Reviewed/Agreed w/PFSH: Yes Review of System Dictation CONSTITUTIONAL: NEGATIVE EXCEPT FOR HPI HEAD/FACE: NEGATIVE EXCEPT FOR HPI EENT: NEGATIVE EXCEPT FOR HPI RESPIRATORY: NEGATIVE EXCEPT FOR HPI CHEST GASTROINTESTINAL/ABDOMINAL: NEGATIVE EXCEPT FOR HPI GENITOURINARY: NEGATIVE EXCEPT FOR HPI MUSCULOSKELETAL: NEGATIVE EXCEPT FOR HPI INTEGUMENTARY: NEGATIVE EXCEPT FOR HPI NEUROLOGICAL/PSYCH: NEGATIVE EXCEPT FOR HPI HEMATOLOGIC/LYMPHATIC: NEGATIVE EXCEPT FOR HPI ALL SYSTEMS NEGATIVE, EXCEPT NOTED ABOVE. 13 POINT REVIEW OF SYSTEMS ASSESSED AND ALL NEGATIVE EXCEPT FOR ABOVE. Initial Vital Sign VS Vital Signs Date Time Temp Pulse Resp B/P (MAP) Pulse Ox O2 Delivery O2 Flow Rate FiO2 03/21/25 17:40 98.2 96 22 118/62 97 Room Air 03/21/25 18:03 0 21 Physical Exam Dictation VITAL SIGNS REVIEWED GENERAL APPEARANCE: ALERT, ORIENTED X 3, NO ACUTE DISTRESS, WELL DEVELOPED, NOURISHED. HEAD AND FACE: NON-TRAUMATIC. EYES: PERRL, PINK CONJUNCTIVAS, EYELID NO TRAUMA, ANTERIOR CHAMBER WITH ARCUS SENILIS. EARS: PINNAS INTACT AND NO SIGNS OF TRAUMA OR ERYTHEMA EAR CANALS CLEAR AND NO DISCHARGE TM NO ERYTHEMA NOSE: NO DISCHARGE, NO BLEEDING. OROPHARYNX: MOUTH NORMAL, TONGUE PINK, PHARYNX CLEAR,NO ERYTHEMA, TONSILS NO EXUDATES, NO ABSCESSES NOTED, MUCOUS MEMBRANE MOIST NECK: SUPPLE, NON-TENDER, NO THYROMEGALY, NO MASSES, NO JVD, NO BRUITS BREAST:DEFERRED CHEST:NO TENDERNESS, NO CREPITUS, NO PARADOXICAL MOVEMENT, NO RETRACTIONS LUNGS:CLEAR, WELL-VENTILATED, SYMMETRIC, NO RALES, NO WHEEZING, NO RHONCHI, NO STRIDOR, GOOD BREATH SOUNDS BILATERALLY HEART: REGULAR RATE, REGULAR RHYTHM, NO MURMUR, NO GALLOPS VASCULAR: 1+ PERIPHERAL EDEMA, ABDOMEN: SOFT, POSITIVE BOWEL SOUNDS, NONDISTENDED, NO GUARDING, NONTENDER, NO REBOUND, NO MASSES NO HEPATOMEGALY, NO SPLENOMEGALY, NO DICKINSON'S SIGN, NO HERNIAS. RECTAL: DEFERRED GENITAL: DEFERRED NEUROLOGICAL: NORMAL SPEECH, MOTOR FUNCTION INTACT, SENSORY FUNCTION INTACT MUSCULOSKELETAL: NECK NONTENDER, FULL RANGE OF MOTION, BACK NONTENDER, FULL RANGE OF MOTION, EXTREMITIES: NONTENDER, FULL RANGE OF MOTION SKIN: COLOR PINK, DRY, NO TURGOR, NO RASH, NO LACERATIONS, NO ABRASIONS, NO CONTUSIONS. LYMPHATIC: DEFERRED Results (Laboratory/Radiology) Laboratory/Radiology Laboratory Tests Test 03/21/25 17:53 03/21/25 18:57 White Blood Count 11.8 K/uL (4.8-10.8) H Red Blood Count 5.14 MIL/uL (4.50-6.20) Hemoglobin 13.6 g/dL (14.0-18.0) L Hematocrit 42.7 % (42-54) Mean Corpuscular Volume 83.1 fL (79-99) Mean Corpuscular Hemoglobin 26.5 pg (27.0-33.0) L Mean Corpuscular Hemoglobin Concent 31.9 g/dL (32.0-36.0) L Red Cell Distribution Width 16.6 % (11.0-15.5) H Platelet Count 526 K/uL (130-400) H Mean Platelet Volume 9.7 fL (7.5-10.5) Immature Granulocyte % (Auto) 1.0 % (0-1) Neutrophils (%) (Auto) 73.4 % (40.0-77.0) Lymphocytes (%) (Auto) 15.3 % (21.0-51.0) L Monocytes (%) (Auto) 7.5 % (3.0-13.0) Eosinophils (%) (Auto) 2.0 % (0.0-8.0) Basophils (%) (Auto) 0.8 % (0.0-5.0) Neutrophils # (Auto) 8.7 K/uL (1.8-7.7) H Lymphocytes # (Auto) 1.8 K/uL (1.0-4.8) Monocytes # (Auto) 0.9 K/uL (0.1-1.0) Eosinophils # (Auto) 0.24 K/uL (0.00-0.70) Basophils # (Auto) 0.10 K/uL (0.00-0.20) Absolute Immature Granulocyte (auto 0.12 K/uL (0-1) Nucleated Red Blood Cells 0.0 % (0.0-0.19) Sodium Level 133 mmol/L (136-145) L Potassium Level 4.2 mmol/L (3.5-5.1) Chloride Level 97 mmol/L (101-111) L Carbon Dioxide Level 31 mmol/L (21-32) Blood Urea Nitrogen 18 mg/dL (7-18) Creatinine 1.0 mg/dL (0.5-1.3) Glomerular Filtration Rate Calc 74 mL/min (>90) Random Glucose 139 mg/dL (70-105) H Total Calcium 9.3 mg/dL (8.5-10.1) Troponin I High Sensitivity 11 ng/L (4-75) B-Type Natriuretic Peptide 269 pg/mL (0-100) H Urine Color YELLOW (YELLOW) Urine Appearance CLEAR (CLEAR) Urine pH 5.5 (5.0-8.0) Urine Specific [place] 1.015 (1.001-1.031) Urine Protein 20 mg/dL (NEGATIVE) H Urine Glucose (UA) NEGATIVE mg/dL (NEGATIVE) Urine Ketones NEGATIVE mg/dL (NEGATIVE) Urine Occult Blood NEGATIVE (NEGATIVE) Urine Nitrate NEGATIVE (NEGATIVE) Urine Bilirubin NEGATIVE mg/dL (NEGATIVE) Urine Urobilinogen 0.2 mg/dL (0.2-1.0) Urine Leukocyte Esterase NEGATIVE Ra/uL Urine RBC 0-1 /HPF (0-1) Urine WBC 0-1 /HPF (0-1) Urine Squamous Epithelial Cells RARE /HPF (0-2) Urine Bacteria None /HPF (None Seen) CHEST 1VW CLINICAL HISTORY: CHEST PAIN/SOB COMPARISON: 03/09/2025 TECHNIQUE: Single view of the chest was obtained. FINDINGS: There is a low lateral wall atelectasis or possibly infiltrates. The cardiac size and mediastinum are unremarkable. The bony structures are within normal limits. IMPRESSION: Bilateral lower lobe atelectasis or infiltrates Labs Reviewed?: Yes EKG Comment: EKG ATRIAL FIBRILLATION WITH A RVR/VENTRICULAR RATE 117/LEFT BUNDLE BRANCH BLOCK REVIEW OF EKG FROM 03/09/2025 REVEALS ATRIAL FIBRILLATION WITH A RVR WITH A LEFT BUNDLE BRANCH BLOCK ED Course ED Course Orders Procedure Category Date Status Time Cbc With Differential LAB 03/21/25 Complete 17:43 B-Type Natriuretic LAB 03/21/25 Complete Peptide 17:43 Chest 1vw RAD 03/21/25 Resulted 17:43 12 Lead Ekg Tracing- EKG 03/21/25 Logged Technical 17:43 Troponin I High LAB 03/21/25 Complete Sensitivity 17:43 Aspirin 325mg Tab PHA 03/21/25 Complete (Aspirin 325mg Tab) 18:00 Urinalysis Profile LAB 03/21/25 Complete 17:43 Basic Metabolic Panel LAB 03/21/25 Complete 17:43 Metoprolol Tartrate PHA 03/21/25 Complete (Lopressor) 18:00 Troponin I High LAB 03/21/25 Logged Sensitivity 20:55 12 Lead Ekg Tracing- EKG 03/21/25 Logged Technical 20:55 Admit Orders ADM 03/21/25 Transmitted 20:58 Edm Admit Bridge Order ADM 03/21/25 Transmitted 20:58 Current Medications Medications (Trade) Dose Ordered Sig/Clive Route PRN Reason Start Time Stop Time Status Last Admin Dose Admin Aspirin (Aspirin 325mg Tab) 325 mg ONCE ONCE PO 03/21/25 18:00 03/21/25 18:01 DC 03/21/25 18:57 Metoprolol Tartrate (loprESSOR) 5 mg ONCE ONCE IV 03/21/25 18:00 03/21/25 18:01 DC 03/21/25 19:00 Vital Signs Date Time Temp Pulse Resp B/P (MAP) Pulse Ox O2 Delivery O2 Flow Rate FiO2 03/21/25 19:54 98.2 70 19 110/68 98 Room Air* 0 21 03/21/25 19:21 98.4 98 20 107/64 98 Room Air* 0 21 03/21/25 19:00 116 97/66 03/21/25 18:03 111 18 99/65 98 Room Air* 0 03/21/25 17:40 98.2 96 22 118/62 97 Room Air 2010/heart rate now 75 patient states he is out of pain. He states when he does stand he gets up and he feels pressure again. I admitted to the patient I we will be admitted to the hospital 2054/[facility] HAS BEEN PAGED FOR ADMISSION HAS NOT RETURNED CALL. THEY WE WILL BE REPEATING FOR ADMISSION. NO PAIN AT THIS TIME ON APPROACH TO PATIENT 2100/SPOKE WITH BIANCA GUYP HOSPITALIST AND REVIEWED CHEST X-RAY EKG LABS AND INTERVENTIONS FOR AFIB WITH A RVR. HE AGREED TO ADMIT PATIENT. HEART Score Response (Comments) Value EKG: Repolarization changes 1 Age: > 65yrs (+2) 2 Risk Factors: 3+ risk factors (+2) 2 Initial Troponin: Normal limit (0) 0 Total 5 Medical Decision Making MDM MDM: Differential diagnosis: AFib with a RVR/ACS/AMI/electrolyte imbalance/dehydration/pneumonia/bronchitis/fluid overload/CHF Rationale: Tests considered and ordered secondary to shared decision making include: labs, ECG and radiology Previous outside records reviewed: Old ER visits. Risk of complication and/or morbidity or mortality of patient management: Moderate Medications-Per medication reconciliation Need for hospitalization: Patient does meet criteria for hospitalization. Patient will be admitted for high-risk chest pain, AFib with RVR mild fluid overload Need for emergency major/minor surgery: No There are no social concerns with this patient. Prescription drug management Prescriptions will include symptomatic care Patient's prior external medical records from other ER visits were reviewed by me as indicated. Prior testing and results from previous visits were reviewed. Prior tests were taken into account with medical decision making and resource utilization, independent historian/historians were used to obtain complete [facility] history. I independently interpreted the test that were performed, results were reviewed by me and considered findings on radiology if ordered. Medical management and examination interpretation discussions were had by me with other qualified healthcare professionals as indicated for the patient's care. DX & DISP Disposition: Inpatient Decision to Admit Time: 20:16 Departure Impression: Primary Impression: Atrial fibrillation with RVR Additional Impressions: Hyponatremia, Mild congestive heart failure, Stage 2 chronic kidney disease Condition: Stable Referrals: JOÃO ARRIAGA MD (PCP) Time of Disposition: 20:16 I have reviewed the case, and I agree with, Diagnosis and Plan ERICK RESTREPO INSULATION ENGINEMAN March 21, 2025 17:46
[2025-03-21 17:59] LABS: BASOPHILS % (AUTO) 0.8 % (0.0-5.0); EOSINOPHILS # (AUTO) 0.24 K/uL (0.00-0.70); HEMATOCRIT 42.7 % (42-54); IMMATURE GRANULOCYTE ABSOLUTE 0.12 K/uL (0-1); LYMPHOCYTES # (AUTO) 1.8 K/uL (1.0-4.8); LYMPHOCYTES % (AUTO) 15.3 % (21.0-51.0); MEAN CORPUSCULAR HEMOGLOBIN 26.5 pg (27.0-33.0); MEAN CORPUSCULAR HGB CONC 31.9 g/dL (32.0-36.0); MEAN CORPUSCULAR VOLUME 83.1 fL (79-99); MONOCYTES # (AUTO) 0.9 K/uL (0.1-1.0); MONOCYTES % (AUTO) 7.5 % (3.0-13.0); NEUTROPHILS # (AUTO) 8.7 K/uL (1.8-7.7); NEUTROPHILS % (AUTO) 73.4 % (40.0-77.0); PLATELET COUNT (AUTO) 526 K/uL (130-400); RED BLOOD CELL COUNT(AUTO) 5.14 MIL/uL (4.50-6.20); RED CELL DISTRIBUTION WIDTH 16.6 % (11.0-15.5); WHITE BLOOD COUNT (AUTO) 11.8 K/uL (4.8-10.8)
[2025-03-21 18:08] LABS: POTASSIUM 4.2 mmol/L (3.5-5.1)
--- NOTE | 2025-03-21 18:14 | HMCIMG ---
CHEST 1VW CLINICAL HISTORY: CHEST PAIN/SOB COMPARISON: 03/09/2025 TECHNIQUE: Single view of the chest was obtained. FINDINGS: There is a low lateral wall atelectasis or possibly infiltrates. The cardiac size and mediastinum are unremarkable. The bony structures are within normal limits. IMPRESSION: Bilateral lower lobe atelectasis or infiltrates
[2025-03-21] MEDS ORDERED: OLME-30 PO (18:24)
[2025-03-21] MEDS ORDERED: LEVA15HF3 IH (18:26)
[2025-03-21] MEDS ORDERED: FLUT1BLS3 IH (18:26)
[2025-03-21] MEDS ORDERED: TIRZ5PEN SQ (18:28)
[2025-03-21 18:34] LABS: B-TYPE NATRIURETIC PEPTIDE 269 pg/mL (0-100)
[2025-03-21] MEDS: ASPIRIN 325MG TAB PO ONE (18:57)
[2025-03-21] MEDS: metoPROLOL tartRATE 1 MG/ML 5ML VIAL IV ONE (19:00)
[2025-03-21 19:30] LABS: APPEARANCE,URINE CLEAR (CLEAR); BILIRUBIN,URINE NEGATIVE (NEGATIVE); COLOR,URINE YELLOW (YELLOW); GLUCOSE, URINE (UA) NEGATIVE (NEGATIVE); KETONES,URINE NEGATIVE (NEGATIVE); LEUKOCYTE ESTERASE ,URINE NEGATIVE Leu/uL (NEGATIVE); NITRATE,URINE NEGATIVE (NEGATIVE); OCCULT BLOOD,URINE NEGATIVE (NEGATIVE); PH,URINE 5.5 (5.0-8.0); PROTEIN,URINE 20 mg/dL (NEGATIVE); UROBILINOGEN,URINE 0.2 mg/dL (0.2-1.0)
[2025-03-21 19:32] LABS: ADD UA MICROSCOPIC YES
[2025-03-21 19:33] LABS: MUCUS,URINE RARE LPF (None Seen); RBC,URINE 0-1 /HPF (0-1); SQUAMOUS EPITHELIAL CELL,UR RARE /HPF (0-2); WBC,URINE 0-1 /HPF (0-1)
--- NOTE | 2025-03-21 21:10 | EKG ---
[facility] Test Date: 2025-03-21 Test Time: 21:07:54 Pat Name: ABISAI MCGHEE Department: ED Room: 318 Gender: M Paramedic: [id number] : [id number] Requested By: ERICK RESTREPO Order Number: [id number] Reading MD: Ehsan Owens Measurements Intervals [place] Rate: 70 P: 11 [place]: 181 QRS: -20 QRSD: 134 T: 157 QT: 433 QTc: 461 Interpretive Statements Sinus rhythm Atrial premature complex Left bundle branch block Compared to ECG 03/09/2025 13:20:14 Atrial premature complex(es) now present Atrial fibrillation no longer present Electronically Signed On 03-22-2025 07:19:05 CDT by Ehsan Owens Please click the below link to view image of tracing.
[2025-03-21] MEDS ORDERED: hydrALAZine 20MG/ML VIAL IV PRN (21:30)
[2025-03-21] MEDS ORDERED: cloNIDine HCL 0.1 MG TABLET PO PRN (21:30)
[2025-03-21] MEDS ORDERED: acetaMINOPHEN 325 MG TAB PO PRN (21:30)
[2025-03-21] MEDS ORDERED: ondanSETRON 4MG INJ IVP PRN (21:30)
[2025-03-21] MEDS ORDERED: acetaMINOPHEN 650 MG SUPPOSITORY RC PRN (21:30)
[2025-03-21] MEDS ORDERED: LAbetaLOL 20MG SYG IV PRN (21:30)
--- NOTE | 2025-03-21 21:33 | HP ---
[facility] HISTORY & PHYSICAL Date Patient Seen: March 21, 2025 Time of Visit: 21:26 Supervising Physician: Dr Flori Chand Primary Care Physician: Dr. Page Outpatient Specialists: Dr. Loera Inpatient Consults: [ ] PROBLEM LIST: Acute hypoxic respiratory failure, POA Atrial fibrillation with RVR, POA Hyponatremia, POA Community-acquired pneumonia, POA Leukocytosis, POA COPD, POA Hypertension, POA DM type 2, POA Hyperlipidemia, POA Iron deficiency anemia, POA PLAN: Admit to medical-surgical floor with telemetry VS per unit protocol Start patient on ceftriaxone and azithromycin Continue cardiac monitoring Keep potassium level above four, magnesium level above two Continue Trelegy and levalbuterol O2 therapy as needed Bilateral SCDs Incentive spirometry Deep breathing exercises Monitor temperature curve Check for COVID and flu CBC, CMP, magnesium level daily HPI: 84-year-old male with past medical history of AFib, COPD, hypertension, DM type 2, hyperlipidemia, who was recently discharged from this hospital last month with shortness of breaths, acute hypoxic respiratory failure, and AFib with RVR. He again presented today via EMS with complaint of shortness of breaths and found to have atrial fibrillation with RVR requiring IV dose of Lopressor. Patient was seen and examined in ED with present at bedside. According to the patient he saw Dr. Loera his supervisor of way last week and made some adjustment on his diltiazem and metoprolol. However today he started to have shortness of breath, noted that his heart rate was elevated. EMS was then activated and brought patient to ED for further medical evaluation. In ED stat chest x-ray was done and showed bilateral infiltrates, CBC is notable for mildly elevated WBC at 11.8, his chemistry is significant for sodium level of 133, BNP of 269, and troponin level of 10. EKG also revealed atrial fibrillation with RVR. At present patient is currently hemodynamically stable, on room air with appropriate oxygen saturation, normal sinus rhythm on the monitor, with adequate systolic blood pressure. On auscultation there is crackling sounds on the right lower lung field, no retraction or use of accessory muscle noted. Patient denies any headache, chest pain, fever, abdominal pain, difficulty urinating, or swelling. Patient denies any smoking, alcohol intake, or illicit drug use. PAST MEDICAL HX: see above PAST SURGICAL HX: noncontributory SOCIAL HISTORY: No tobacco, ETOH, or illicit drug use Coded Allergies: metronidazole (Unverified Allergy, Unknown, 07/04/20) REVIEW OF SYSTEMS: 12 point ROS reviewed with patient. Pertinent positives mentioned above. Otherwise negative. PHYSICAL EXAM: GENERAL: alert, weak, awake oriented x 3 HEENT: EOMI, Sclera non icteric, moist mucosa NECK: Supple, no JVD, trachea midline LUNGS: Coarse lung sounds to right lower lung oscar HEART: Regular rate and rhythm. Normal S1 and S2, without murmurs ABD: Abdomen soft, nontender. Bowel sounds present EXT: No clubbing cyanosis or edema NEURO: Alert and oriented to person, follows commands Vital Signs (last 8hr) Date Time Temp Pulse Resp B/P (MAP) Pulse Ox O2 Delivery O2 Flow Rate FiO2 03/21/25 19:54 98.2 70 19 110/68 98 Room Air* 0 21 03/21/25 19:21 98.4 98 20 107/64 98 Room Air* 0 03/21/25 19:00 116 97/66 03/21/25 18:03 111 18 99/65 98 Room Air* 0 03/21/25 17:40 98.2 96 22 118/62 97 Room Air LABS: Hematology Labs: Test 03/21/25 17:53 Range/Units White Blood Count 11.8 H 4.8-10.8 K/uL Red Blood Count 5.14 4.50-6.20 MIL/uL Hemoglobin 13.6 L 14.0-18.0 g/dL Hematocrit 42.7 42-54 % Mean Corpuscular Volume 83.1 79-99 fL Mean Corpuscular Hemoglobin 26.5 L 27.0-33.0 pg Mean Corpuscular Hemoglobin Concent 31.9 L 32.0-36.0 g/dL Red Cell Distribution Width 16.6 H 11.0-15.5 % Platelet Count 526 H 130-400 K/uL Mean Platelet Volume 9.7 7.5-10.5 fL Immature Granulocyte % (Auto) 1.0 0-1 % Neutrophils (%) (Auto) 73.4 40.0-77.0 % Lymphocytes (%) (Auto) 15.3 L 21.0-51.0 % Monocytes (%) (Auto) 7.5 3.0-13.0 % Eosinophils (%) (Auto) 2.0 0.0-8.0 % Basophils (%) (Auto) 0.8 0.0-5.0 % Neutrophils # (Auto) 8.7 H 1.8-7.7 K/uL Lymphocytes # (Auto) 1.8 1.0-4.8 K/uL Monocytes # (Auto) 0.9 0.1-1.0 K/uL Eosinophils # (Auto) 0.24 0.00-0.70 K/uL Basophils # (Auto) 0.10 0.00-0.20 K/uL Absolute Immature Granulocyte (auto 0.12 0-1 K/uL Nucleated Red Blood Cells 0.0 0.0-0.19 % Chemistry Labs: Test 03/21/25 17:53 Range/Units Sodium Level 133 L 136-145 mmol/L Potassium Level 4.2 3.5-5.1 mmol/L Chloride Level 97 L 101-111 mmol/L Carbon Dioxide Level 31 21-32 mmol/L Blood Urea Nitrogen 18 7-18 mg/dL Creatinine 1.0 0.5-1.3 mg/dL Glomerular Filtration Rate Calc 74 >90 mL/min Random Glucose 139 H 70-105 mg/dL Total Calcium 9.3 8.5-10.1 mg/dL Troponin I High Sensitivity 11 4-75 ng/L B-Type Natriuretic Peptide 269 H 0-100 pg/mL DIAGNOSTICS / RADIOLOGY RESULTS: CHEST 1VW CLINICAL HISTORY: CHEST PAIN/SOB COMPARISON: 03/09/2025 TECHNIQUE: Single view of the chest was obtained. FINDINGS: There is a low lateral wall atelectasis or possibly infiltrates. The cardiac size and mediastinum are unremarkable. The bony structures are within normal limits. IMPRESSION: Bilateral lower lobe atelectasis or infiltrates PLAN NEURO: Minimize central acting medications as possible. Maintain fall precautions, adequate lighting during the day PULMONARY: Supplemental 02 as needed. Maintain aspiration precautions at all times CARDIOVASCULAR: Follow hemodynamics. Vital signs per facility protocol GI & NUTRITION: Continue with nutritional support. Continue stool softeners and laxatives as needed. KIDNEYS & ELECTROLYTES: Strict monitoring of intake, output and overall fluid balance. Avoid nephrotoxic medications to the extent possible. Medications to be dosed according to renal function. Monitor electrolytes and replace as needed ENDOCRINE: Maintain blood glucose between 100-180 at all times. Hypoglycemia protocol in place INFECTIOUS DISEASE: Trend temperature, WBC and procalcitonin level Follow cultures, deescalate antibiotics as soon as possible. Panculture if new onset fever ONCOLOGY/HEMATOLOGY/COAGULATION: Monitor for s/s of bleeding Monitor hemoglobin, coagulation studies as needed SKIN: Pressure ulcer prevention per facility protocol Specialty mattress ORTHO/REHAB: Continue PT/OT Prophylaxis: Continue GI and DVT prophylaxis Code Status: Full Resuscitation Disposition: TBD Other: Total patient care time exceeds 35 minutes excluding all procedures. Supervising physician: MARTA Jones CLIENT RELATIONSHIP MANAGER March 21, 2025 21:33
[2025-03-21] MEDS ORDERED: HYDROcodone/APAP 5/325 1 TAB TABLET PO PRN (22:00)
[2025-03-21] MEDS: LEVALBUTEROL TARTRATE IH SCH (22:30)
[2025-03-21 23:10] VITALS: PULSE 68; RESP 18
[2025-03-21] MEDS: IpraTROPium 0.5 MG/2.5 ML INH IH SCH (23:17)
[2025-03-21 23:25] VITALS: PULSE 68; RESP 20; O2SAT 97
[2025-03-21] MEDS: cefTRIAXone 1G VIAL IVPB SCH (23:26)
[2025-03-21] MEDS: AZITHROMYCIN 250 MG TABLET PO SCH (23:26)
[2025-03-21 23:53] VITALS: PULSE 68; RESP 18; O2SAT 97
[2025-03-22] VITALS (9 sets, daily range): BP systolic 114–129; BP diastolic 56–68; PULSE 58–71; RESP 17–20; TEMP 97.4–98.4; O2SAT 95–96
--- NOTE | 2025-03-22 00:39 | NUR ---
REPORT GIVEN TO JUSTIN NINO
[2025-03-22 01:09] LABS: SARS-CoV-2, RNA, NAAT NEGATIVE SARS CoV-2 (NEGATIVE)
[2025-03-22 01:13] LABS: INFLUENZA TYPE A Negative For Type A (NEGATIVE); INFLUENZA TYPE B Negative For Type B (NEGATIVE)
[2025-03-22] MEDS: HYDROcodone/APAP 5/325 1 TAB TABLET PO PRN (03:43)
[2025-03-22 05:33] LABS: BASOPHILS % (AUTO) 1.2 % (0.0-5.0); EOSINOPHILS # (AUTO) 0.42 K/uL (0.00-0.70); EOSINOPHILS % (AUTO) 4.9 % (0.0-8.0); HEMATOCRIT 36.8 % (42-54); IMMATURE GRANULOCYTE ABSOLUTE 0.15 K/uL (0-1); LYMPHOCYTES # (AUTO) 1.6 K/uL (1.0-4.8); LYMPHOCYTES % (AUTO) 18.2 % (21.0-51.0); MEAN CORPUSCULAR HEMOGLOBIN 26.6 pg (27.0-33.0); MEAN CORPUSCULAR HGB CONC 32.3 g/dL (32.0-36.0); MEAN CORPUSCULAR VOLUME 82.3 fL (79-99); MONOCYTES # (AUTO) 0.8 K/uL (0.1-1.0); MONOCYTES % (AUTO) 9.8 % (3.0-13.0); NEUTROPHILS # (AUTO) 5.5 K/uL (1.8-7.7); NEUTROPHILS % (AUTO) 64.1 % (40.0-77.0); PLATELET COUNT (AUTO) 396 K/uL (130-400); RED BLOOD CELL COUNT(AUTO) 4.47 MIL/uL (4.50-6.20); RED CELL DISTRIBUTION WIDTH 16.4 % (11.0-15.5); WHITE BLOOD COUNT (AUTO) 8.6 K/uL (4.8-10.8)
[2025-03-22] MEDS: INSULIN humuLIN R 100 UNIT/ML 3ML SQ SCH (05:55)
[2025-03-22 05:58] LABS: CREATININE 0.9 mg/dL (0.5-1.3); MAGNESIUM 1.7 mg/dL (1.80-2.40)
[2025-03-22] MEDS: MAGNESIUM 2GM PREMIX 50ML 50 ML IV PRN (06:46)
--- NOTE | 2025-03-22 08:00 | NUR ---
AM MEDICATION HELD METOPROLOL AM DOSE DUE TO PATIENT'S PULSE BEING @ 58. EDUCATED PATIENT ON MEDICATIONS AND REASON'S FOR HOLDING. PATIENT VOICED UNDERSTANDING. MD NOTIFIED.
--- NOTE | 2025-03-22 08:04 | EKG ---
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
[2025-03-22] MEDS: Fluticasone/Umeclidin/Vilanter (Trelegy Ellipta 100-62.5- IH SCH (08:33)
[2025-03-22] MEDS: ASCORBIC ACID 500 MG TAB PO SCH (08:33)
[2025-03-22] MEDS: ENOXAPARIN SODIUM 40 MG/0.4 ML SYRINGE SQ SCH (08:33)
[2025-03-22] MEDS: FAMOTIDINE 20MG TAB PO SCH (08:33)
[2025-03-22] MEDS: pregABALin 25 MG CAP PO SCH (08:33)
[2025-03-22] MEDS: tamSULOsin HCL 0.4 MG CAP.ER.24H PO SCH (08:33)
[2025-03-22] MEDS: metOPROLol sucCINATE 50 MG TAB.SR.24H PO SCH (08:46)
[2025-03-22] MEDS: polyETHYLene GLYCol 3350 17 GM POWD.PACK PO SCH (08:46)
[2025-03-22] MEDS ORDERED: AZIT250T9 PO (14:50)
--- NOTE | 2025-03-22 14:51 | DS ---
[facility] DISCHARGE SUMMARY Date Patient Seen: March 22, 2025 Time of Visit: 15:50 Supervising Physician: [Dr. Kim] Primary Care Physician: Dr. Page Outpatient Specialists: Dr. Loera Inpatient Consults: [ ] PROBLEM LIST: Atrial fibrillation with RVR, POA, resolved Hyponatremia, POA, resolved Community-acquired pneumonia, POA, treated Leukocytosis, POA , resolved COPD, without exacerbation Hypertension, POA DM type 2, POA Hyperlipidemia, POA Iron deficiency anemia, POA PLAN: continue azithromycin outpatient Follow-up with PCP for re-evaluation Continue medications outpatient as previously taken Follow up with Cardiology for discussion of oral anticoagulation in paroxysmal AFib given history of GI bleed requiring transfusion HOSPITAL COURSE: HPI (per admitting provider) 84-year-old male with past medical history of AFib, COPD, hypertension, DM type 2, hyperlipidemia, who was recently discharged from this hospital last month with shortness of breaths, acute hypoxic respiratory failure, and AFib with RVR. He again presented today via EMS with complaint of shortness of breaths and found to have atrial fibrillation with RVR requiring IV dose of Lopressor. Patient was seen and examined in ED with present at bedside. According to the patient he saw Dr. Loera his mobile ui developer last week and made some adjustment on his diltiazem and metoprolol. However today he started to have shortness of breath, noted that his heart rate was elevated. EMS was then activated and brought patient to ED for further medical evaluation. In ED stat chest x-ray was done and showed bilateral infiltrates, CBC is notable for mildly elevated WBC at 11.8, his chemistry is significant for sodium level of 133, BNP of 269, and troponin level of 10. EKG also revealed atrial fibrillation with RVR. At present patient is currently hemodynamically stable, on room air with appropriate oxygen saturation, normal sinus rhythm on the monitor, with adequate systolic blood pressure. On auscultation there is crackling sounds on the right lower lung field, no retraction or use of accessory muscle noted. Patient denies any headache, chest pain, fever, abdominal pain, difficulty urina ting, or swelling. Patient denies any smoking, alcohol intake, or illicit drug use. 03/22 Patient is evaluated at bedside. He has converted back to normal sinus rhythm after Lopressor. He is found to have bilateral lower lobe infiltrates on CXR. He is feeling improved from admission with less cough. No current wheezing, saturating well on room air. Patient is not currently on or anticoagulation outpatient for paroxysmal AFib states with pending appointment with his mobile ui developer to discuss the same. He admits a history of multiple GI bleeds in the past requiring transfusion and for now wishes to defer the use of anticoagulation due to the same pending a discussion was mobile ui developer. He understands the risks and benefits of taking anticoagulation. The patient was treated for the following problems: ACTIVE PROBLEM LIST FOR THE HOSPITALIZATION: CHRONIC PROBLEMS: continue previous management per PCP unless otherwise indicated DISCHARGE MEDICATIONS: As listed below Pt hemodynamically stable and afebrile at time of discharge. PCP notified of patients admission, hospital course and discharge. New Medications: Azithromycin (Azithromycin) 250 Mg Tablet 1 TAB PO AD for 5 Days, #6 TAB 0 Refills 2 the first day followed by 1 for days 2-5 Continued Medications: Albuterol Sulfate (Ventolin Hfa) 90 Mcg Hfa.aer.ad 2 PUFF IH DAILY Aspirin (Aspirin EC) 81 Mg Tablet.dr 81 MG PO DAILY, TAB Finasteride (Finasteride) 5 Mg Tablet 5 MG PO HS, TAB Fluticasone/Umeclidin/Vilanter (Trelegy Ellipta 100-62.5-25) 100-62.5 Blst.w.dev 1 PUFF IH DAILY for 30 Days, #1 EACH 0 Refills Ipratropium Sinai (Ipratropium Sinai) 42 Mcg (0.06 %) [place] 2 SPRY EN BID PRN for congestion Levalbuterol Tartrate (Levalbuterol Tartrate Hfa) 45 Mcg/Actuation Hfa.aer.ad 2 PUFF IH Q4H for 30 Days, #15 GM 0 Refills Magnesium Citrate (Magnesium Citrate) 100 Mg Tablet 1 TAB PO HS for 30 Days, #30 TAB 0 Refills Metoprolol Succinate (Metoprolol Succinate) 50 Mg Tab.er.24h 1 TAB PO BID Mv-Min/Folic/K1/Lycopen/Lutein (Centrum Silver Men Tablet) 300 Mcg-60 Mcg-600 Mcg-300 Mcg Tablet 1 EACH PO DAILY, TAB Olmesartan Medoxomil (Olmesartan Medoxomil) 40 Mg Tablet 0.5 TAB PO DAILY for 30 Days, #30 TAB 0 Refills Olmesartan/Hydrochlorothiazide (Olmesartan-Hctz 40-12.5 mg Tab) 40 Mg-12.5 Mg Tablet 0.5 TAB PO DAILY for 30 Days, #30 TAB 0 Refills Pravastatin Sodium (Pravastatin Sodium) 40 Mg Tablet 40 MG PO DAILY, TAB Pregabalin (Pregabalin) 25 Mg Capsule 1 CAP PO BID Tamsulosin HCl (Tamsulosin HCl) 0.4 Mg Cap.er.24h 0.4 MG PO DAILY, CAPSULE. Tirzepatide (Mounjaro) 5 Mg/0.5 Ml Pen.injctr 5 MG SQ QWEEK Vit C/E/Zn/Coppr/Lutein/Zeaxan (Preservision Areds 2 Softgel) 250MG-90MG Capsule 1 CAP PO BID for 30 Days, #60 CAP 0 Refills PHYSICAL EXAM: GENERAL: alert, weak, awake oriented x 3 HEENT: EOMI, Sclera non icteric, moist mucosa NECK: Supple, no JVD, trachea midline LUNGS: Coarse lung sounds to right lower lung oscar HEART: Regular rate and rhythm. Normal S1 and S2, without murmurs ABD: Abdomen soft, nontender. Bowel sounds present EXT: No clubbing cyanosis or edema NEURO: Alert and oriented to person, follows commands FOLLOW-UP: Follow up with cardiology on April 05 regarding anticoagulant use for paraoxysmal A-fib. Continue all other medications as prescribed. Continue antibiotics upon discharge. Follow up with PCP upon discharge for re- evaluation. RECOMMENDATIONS: See Discharge Instructions This case was seen and discussed with my supervising physician. More than 30 minutes spent on discharge process, including evaluation of the patient, discussion with nursing staff, medication reconciliation and follow-up appointments DIMAS MOTT March 22, 2025 14:51
--- NOTE | 2025-03-22 15:21 | NUR ---
Discharge Planning: D/C order in place. Inpatient to [facility].
--- NOTE | 2025-03-22 15:36 | NUR ---
DISCHARGE DISCHARGE ORDERS GIVEN FOR PATIENT TO BE DISCHARGED HOME. DISCHARGE INSTRUCTION AND DOCUMENTATION GIVEN TO PATIENT AND AT BEDSIDE. VOICED UNDERSTANDING. PATIENT HAS FOLLOW UP APPOINTMENT WITH HEART CLINIC ON 04/05/2025 @ 11AM. PATIENT'S REQUESTING EARLIER DATE. ATTEMPTED TO RESCHEDULE FOR EARLIER DATE, HOWEVER FRONT COUNTER CLERK NOT AVAILABLE AT THIS TIME. EXPLAINED TO PATIENT AND . WILL SCHEDULE ONCE DISCHARGE. IV DISCONTINUED, CATHETER INTACT, NO S/S OF INFECTION NOTED TO AREA. PATIENT TOLERATED WELL. BANDS REMOVED PRIOR TO DISCHARGE. PENDING TRANSPORTATION.
[2025-03-22] MEDS ORDERED: metFORmin HCL 500 MG TABLET PO SCH (21:00)
[2025-03-22] MEDS ORDERED: atorVAStatin 10 MG TABLET PO SCH (21:00)
[2025-03-22] MEDS ORDERED: finaSTERide 5 MG TABLET PO SCH (21:00)
[2025-03-23] MEDS ORDERED: (Olmesartan/Hydrochlorothiazide (Olmesartan-Hctz 40-12.5 m PO SCH (09:00)
[2025-03-23] MEDS ORDERED: ASPIRIN 81 MG EC TAB PO SCH (09:00)
[2025-03-23] MEDS ORDERED: OLMESARTAN MEDOXOMIL PO SCH (09:00)
== END 2025-03-22 16:18 | disposition home or self-care (01) ==
LOC: EDH 17:39 → EDHIP 20:58 → INTOOBSV 20:58 → 3CH 03-22 00:36
PROVIDERS: ADMIT Internal Medicine Critical Care Medicine; ATTEND Internal Medicine Critical Care Medicine
DX: J96.01 Acute respiratory failure with hypoxia (principal); Z20.822 Contact with and (suspected) exposure to COVID-19; I48.20 Chronic atrial fibrillation, unspecified; E87.1 Hypo-osmolality and hyponatremia; J18.9 Pneumonia, unspecified organism; D72.829 Elevated white blood cell count, unspecified; J44.9 Chronic obstructive pulmonary disease, unspecified; I13.0 Hypertensive heart and chronic kidney disease with heart failure and stage 1 through stage 4 chronic kidney disease, or unspecified chronic kidney disease; E11.22 Type 2 diabetes mellitus with diabetic chronic kidney disease; N18.2 Chronic kidney disease, stage 2 (mild); I50.9 Heart failure, unspecified; E78.00 Pure hypercholesterolemia, unspecified; D50.9 Iron deficiency anemia, unspecified; I25.2 Old myocardial infarction; I44.7 Left bundle-branch block, unspecified; Z95.5 Presence of coronary angioplasty implant and graft; Z88.8 Allergy status to other drugs, medicaments and biological substances; Z90.49 Acquired absence of other specified parts of digestive tract; Z79.899 Other long term (current) drug therapy
CPT/HCPCS: 99285; 96365; 71045; 96375; 84484 ×2; 80048 ×2; 83880; 85025 ×2; 81001; 36415 ×2; 93005 ×2; 96367; 87635; 96372; 83735; 84100; 87804 ×2; 82948 ×2; 94640; G0378; J3490; J0696; J3475; J1650; 94664